=== PATIENT | female | born 1960 | race Caucasian/White ===

== ENCOUNTER 2019-05-08 13:55 | Emergency (ER) | payer MEDICARE, MEDICAID ==
[~2019-05-08] VITALS: Ht 165.1 cm; Wt 104.5 kg
[2019-05-08] MEDS ORDERED: ASPIRIN 81 MG TAB.CHEW PO ONE (14:30)
--- NOTE | 2019-05-08 14:40 | RAD ---
PORTABLE CHEST 1V History: Chest pain Comparison: January 25, 2005 Findings: Single view of the chest is submitted. . AP portable view of the chest is submitted. Pericardial cardiac silhouette appears somewhat larger although could be accentuated by differences in technique. There is no significant dependent pleural fluid, pneumothorax, or lobar consolidation. Impression: 1. Pericardial cardiac silhouette appears larger than 2005 exam although could be accentuated by differences in technique. Electronically signed by: Brandt De La Paz MD (05/08/2019 2:37 PM) [facility] [place]
[2019-05-08 14:52] LABS: BASO % 1 % (0-3); EOS # 0.2 x10^3/uL (0.0-0.7); EOS % 4 % (0-3); HEMATOCRIT 41.3 % (36.0-47.0); HEMOGLOBIN 13.4 g/dL (12.0-15.5); LYMPH # 1.4 x10^3/uL (1.0-4.8); LYMPH % 26 % (24-48); MEAN CORPUSCULAR HEMOGLOBIN 29 pg (25-35); MEAN CORPUSCULAR HGB CONC 33 g/dL (31-37); MEAN CORPUSCULAR VOLUME 89 fL (79-100); MONO # 0.5 x10^3/uL (0.0-1.1); MONO % 10 % (0-9); NEUT # 3.1 x10^3uL (1.8-7.7); NEUT % 59 % (31-73); PLATELET COUNT 178 x10^3/uL (140-400); RED BLOOD COUNT 4.66 x10^6/uL (3.50-5.40); RED CELL DISTRIBUTION WIDTH 15.7 % (11.5-14.5); WHITE BLOOD COUNT 5.3 x10^3/uL (4.0-11.0)
[2019-05-08 14:58] LABS: CALCIUM 8.7 mg/dL (8.5-10.1); CREATININE 1.3 mg/dL (0.6-1.0); GFR 42.1; POTASSIUM 4.1 mmol/L (3.5-5.1)
[2019-05-08 15:10] LABS: ALBUMIN 3.4 g/dL (3.4-5.0); ALBUMIN/GLOBULIN RATIO 1.2 (1.0-1.7); TOTAL BILIRUBIN 0.2 mg/dL (0.2-1.0); TOTAL PROTEIN 6.3 g/dL (6.4-8.2)
--- NOTE | 2019-05-08 15:27 | EKG ---
[address] [address] Test Date: 2019-05-08 Test Time: 14:02:29 Pat Name: ORA CRISTOBAL Department: Room: Gender: F Static Balancer: : 1960 Requested By: JOSE CHAUDHARI Order Number: [id number] Reading MD: Measurements Intervals [place] Rate: 59 P: 40 [place]: 184 QRS: 66 QRSD: 92 T: 69 QT: 392 QTc: 388 Interpretive Statements SINUS RHYTHM NO SPECIFIC ECG ABNORMALITIES RI6.01 No previous ECG available for comparison
--- NOTE | 2019-05-08 15:35 | PHYS DOC ---
Past History Past Medical History: Anxiety, Bipolar, CAD, Diabetes, Other Additional Past Medical Histor: FACTOR 5 Past Surgical History: Cholecystectomy, Knee Replacement Alcohol Use: None Adult General Chief Complaint Chief Complaint: CHEST PAIN HPI HPI 59-year-old female presents with chest pain. The patient was driving when she began to have 10 out of 10 central chest pain that she describes as a sharp sensation. It radiated through to her back. She also had some cramping in the left side of her jaw. This started about an hour prior to arrival. The pain has decreased to a 3 out of 10. She has not taken anything for it. She does have a history of previous MO, but no stents placed. No apparent surgery. Her last stress test was 2 years ago and was reported to be within normal limits. The patient has not been having pain similar to less lately. She denies fever chills. She denies shortness of breath or diaphoresis. She has no other complaints at this time. Review of Systems Review of Systems Constitutional: Denies fever or chills [] Eyes: Denies change in visual acuity, redness, or eye pain [] HENT: Denies nasal congestion or sore throat [] Respiratory: Denies cough or shortness of breath [] Cardiovascular: No additional information not addressed in HPI [] GI: Denies abdominal pain, nausea, vomiting, bloody stools or diarrhea [] : Denies dysuria or hematuria [] Musculoskeletal: Denies back pain or joint pain [] Integument: Denies rash or skin lesions [] Neurologic: Denies headache, focal weakness or sensory changes [] Endocrine: Denies polyuria or polydipsia [] All other systems were reviewed and found to be within normal limits, except as documented in this note. Current Medications Current Medications Current Medications Medications (Trade) Dose Ordered Sig/Lisa Start Time Stop Time Status Last Admin Dose Admin Aspirin (Children'S Aspirin) 324 mg 1X ONCE 05/08/19 14:30 05/08/19 14:31 DC 05/08/19 14:38 324 MG Allergies Allergies Allergies Coded Allergies Type Severity Reaction Last Updated Verified fluoxetine Allergy Unknown 05/08/19 Yes Physical Exam Physical Exam Constitutional: Well developed, well nourished, morbidly obese, no acute distress, non-toxic appearance. [] HENT: Normocephalic, atraumatic, bilateral external ears normal, oropharynx moist, no oral exudates, nose normal. [] Eyes: PERRLA, EOMI, conjunctiva normal, no discharge. [] Neck: Normal range of motion, no tenderness, supple, no stridor. [] Cardiovascular: Heart rate regular rhythm, no murmur [] Lungs & Thorax: Bilateral breath sounds clear to auscultation [] Abdomen: Bowel sounds normal, soft, no tenderness, no masses, no pulsatile masses. [] Skin: Warm, dry, no erythema, no rash. [] Back: No tenderness, no CVA tenderness. [] Extremities: No tenderness, no cyanosis, no clubbing, ROM intact, no edema. [] Neurologic: Alert and oriented X 3, normal motor function, normal sensory function, no focal deficits noted. [] Psychologic: Affect normal, judgement normal, mood normal. [] Current Patient Data Vital Signs Vital Signs Date Time Temp Pulse Resp B/P (MAP) Pulse Ox O2 Delivery O2 Flow Rate FiO2 05/08/19 14:11 97.6 95 18 111/40 (63) 95 Room Air Lab Results Laboratory Tests Test 05/08/19 14:33 White Blood Count 5.3 x10^3/uL (4.0-11.0) Red Blood Count 4.66 x10^6/uL (3.50-5.40) Hemoglobin 13.4 g/dL (12.0-15.5) Hematocrit 41.3 % (36.0-47.0) Mean Corpuscular Volume 89 fL (79-100) Mean Corpuscular Hemoglobin 29 pg (25-35) Mean Corpuscular Hemoglobin Concent 33 g/dL (31-37) Red Cell Distribution Width 15.7 % (11.5-14.5) H Platelet Count 178 x10^3/uL (140-400) Neutrophils (%) (Auto) 59 % (31-73) Lymphocytes (%) (Auto) 26 % (24-48) Monocytes (%) (Auto) 10 % (0-9) H Eosinophils (%) (Auto) 4 % (0-3) H Basophils (%) (Auto) 1 % (0-3) Neutrophils # (Auto) 3.1 x10^3uL (1.8-7.7) Lymphocytes # (Auto) 1.4 x10^3/uL (1.0-4.8) Monocytes # (Auto) 0.5 x10^3/uL (0.0-1.1) Eosinophils # (Auto) 0.2 x10^3/uL (0.0-0.7) Basophils # (Auto) 0.0 x10^3/uL (0.0-0.2) Prothrombin Time 15.8 SEC (9.4-11.4) H Prothrombin Time INR 1.5 (0.9-1.1) H Activated Partial Thromboplast Time 34 SEC (23-33) H Sodium Level 143 mmol/L (136-145) Potassium Level 4.1 mmol/L (3.5-5.1) Chloride Level 108 mmol/L (98-107) H Carbon Dioxide Level 24 mmol/L (21-32) Anion Gap 11 (6-14) Blood Urea Nitrogen 26 mg/dL (7-20) H Creatinine 1.3 mg/dL (0.6-1.0) H Estimated GFR (Cockcroft-Gault) 42.1 BUN/Creatinine Ratio 20 (6-20) Glucose Level 130 mg/dL (70-99) H Calcium Level 8.7 mg/dL (8.5-10.1) Total Bilirubin 0.2 mg/dL (0.2-1.0) Aspartate Amino Transferase (AST) 17 U/L (15-37) Alanine Aminotransferase (ALT) 23 U/L (14-59) Alkaline Phosphatase 55 U/L (46-116) Troponin I Quantitative < 0.017 ng/mL (0-0.055) EC-Ncy-P-Type Natriuretic Peptide 95 pg/mL (0-124) Total Protein 6.3 g/dL (6.4-8.2) L Albumin 3.4 g/dL (3.4-5.0) Albumin/Globulin Ratio 1.2 (1.0-1.7) EKG EKG Sinus rhythm, rate 59, normal axis, no ST elevation or depression. [] Radiology/Procedures Radiology/Procedures [] Course & Med Decision Making Course & Med Decision Making Pertinent Labs and Imaging studies reviewed. (See chart for details) The patient's labs are unremarkable. Her chest x-ray shows possible worsening of cardiomegaly. See official read for details. Her troponin is negative. She is feeling considerably better. I believe she can be discharged. If her sy mptoms return, she will come back to the emergency room. She is stable for discharge at this time. [] Dragon Disclaimer Dragon Disclaimer This electronic medical record was generated, in whole or in part, using a voice recognition dictation system. The HEART Score for CP Pts HEART Score for Chest Pain: HEART Score for Chest Pain Response (Comments) Value History Slighlty/Non-Suspicious 0 ECG Normal 0 Age >45 - < 65 1 Risk Factors >3 Risk Factors or Hx CAD 2 Troponin < Normal Limit 0 Total 3 Risk Factors: Risk Factors: DM, Current or recent (<one month) smoker, HTN, HLP, family history of CAD, obesity. Risk Scores: Score 0 - 3: 2.5% MACE over next 6 weeks - Discharge Home Score 4 - 6: 20.3% MACE over next 6 weeks - Admit for Clinical Observation Score 7 - 10: 72.7% MACE over next 6 weeks - Early Invasive Strategies Departure Departure: Impression: Primary Impression: Chest pain Disposition: 01 HOME, SELF-CARE Condition: STABLE Referrals: SYLVIA LEYVA MD (PCP) Patient Instructions: Chest Pain (Nonspecific), [id number] Problem Qualifiers Primary Impression: Chest pain Chest pain type: unspecified Qualified Codes: R07.9 - Chest pain, unspecified JOSE CHAUDHARI DO May 08, 2019 15:35
[2019-05-08 16:05] VITALS: BP 116/49
== END 2019-05-08 16:05 | disposition home or self-care (01) ==
LOC: ER 13:55
DX: R07.89 Other chest pain (principal); R68.84 Jaw pain; I25.10 Atherosclerotic heart disease of native coronary artery without angina pectoris; E11.9 Type 2 diabetes mellitus without complications; F41.9 Anxiety disorder, unspecified; F31.9 Bipolar disorder, unspecified; Z88.8 Allergy status to other drugs, medicaments and biological substances
CPT/HCPCS: 36415; 71045; 80053; 83880; 84484; 85025; 85610; 85730; 93005; 99285

== ENCOUNTER 2019-07-13 17:54 | Observation (INO) | payer MEDICARE, MEDICAID ==
[~2019-07-13] VITALS: Ht 165.1 cm; Wt 109.8 kg
--- NOTE | 2019-07-13 17:59 | PHYS DOC ---
Past History Past Medical History: Anxiety, Bipolar, CAD, CHF, Depression, Diabetes, DVT, Hypertension, Other Additional Past Medical Histor: FACTOR 5 Past Surgical History: Cholecystectomy, Knee Replacement Smoking: Cigarettes Alcohol Use: None General Adult EDM: Chief Complaint: CHEST WALL PAIN HPI: HPI: " .. I woke up with this central chest discomfort... pain.. about 1 to 1 1/2 ago.. I can't lay down because I get too short of breath... " Patient is a 59 year old female who presents with complaints of chest discomfort and dyspnea. Chest pain awoken her from a sound sleep. Chest pain started approximately hour and a half ago. Pt. stated her chest pain is 10/10, does have some pleuritic components. Patient localizes pain to left sternal border. No history of trauma. No recent change in meds. No history of coughing or fever. Patient has had episodes of chest pain in the past, however has never completed her follow-up with cardiology. Patient does have a history of prior ED evaluations on May 07 May 22. Patient does continue to smoke. Patient has in the past had narcotic dependency, pt. request to attempt to avoid narcotic meds in her treatment. Patient denies any history of immunosuppression. No recent travel. Normally follows with in [facility]. Patient denies any recent fever or chills. Denies and ill contacts. By time of admission chest pain down to 3-4 out of 10. 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 Review of Systems: Review of Systems: Constitutional: Denies fever or chills Eyes: Denies change in visual acuity HENT: Denies nasal congestion or sore throat Respiratory: Denies cough or shortness of breath Cardiovascular: Complains of chest pain and edema GI: Denies abdominal pain, nausea, vomiting, bloody stools or diarrhea : Denies dysuria Musculoskeletal: Denies back pain or joint pain Integument: Denies rash Neurologic: Denies headache, focal weakness or sensory changes Endocrine: Denies polyuria or polydipsia Lymphatic: Denies swollen glands Psychiatric: Denies depression or anxiety Heart Score: HEART Score for Chest Pain: HEART Score for Chest Pain Response (Comments) Value History Slighlty/Non-Suspicious 0 ECG Nonspecific Repolarizatio 1 Age >45 - < 65 1 Risk Factors 1 or 2 Risk Factors 1 Troponin < Normal Limit 0 Total 3 Risk Factors: Risk Factors: DM, Current or recent (<one month) smoker, HTN, HLP, family hist ory of CAD, obesity. Risk Scores: Score 0 - 3: 2.5% MACE over next 6 weeks - Discharge Home Score 4 - 6: 20.3% MACE over next 6 weeks - Admit for Clinical Observation Score 7 - 10: 72.7% MACE over next 6 weeks - Early Invasive Strategies Family History: Family History: Mother age 78, healthy- still works, Father of DVT/PE 82. Brother x 3 - all healthy. Current Medications: Current Meds: See nursing for home meds Allergies: Allergies: Allergies Coded Allergies Type Severity Reaction Last Updated Verified fluoxetine Allergy Unknown 05/08/19 Yes Physical Exam: PE: Constitutional: Moderate acute distress, non-toxic appearance. [] HENT: Normocephalic, atraumatic, bilateral external ears normal, oropharynx moist, no oral exudates, nose normal. [] Eyes: PERRLA, EOMI, conjunctiva normal, no discharge. [] Neck: Normal range of motion, no tenderness, supple, no stridor. [] Cardiovascular: Bradycardia heart rate regular rhythm, no murmur [] Lungs & Thorax: Bilateral breath sounds equal apex with scattered wheezes on auscultation [] Abdomen: Bowel sounds normal, soft, no tenderness, no masses, no pulsatile masses. Old surgery scars Skin: Warm, dry, no erythema, no rash. [] Back: No tenderness, no CVA tenderness. [] Extremities: No tenderness, no cyanosis, no clubbing, ROM intact, bilateral lower leg pitting edema. [] Neurologic: Alert and oriented X 3, normal motor function, normal sensory function, no focal deficits noted. [] Psychologic: Affect anxious l, judgement normal, mood normal. [] EKG: EKG: Monitor briefly.. Throat is a sinus bradycardia at 58 bpm. No findings of acute STEMI with contralateral changes. [] Radiology/Procedures: Radiology/Procedures: [address] [address] IMAGING REPORT Signed PATIENT: LUCÍA HERNANDEZCCOUNT: [id number] : 1960 LOCATION: ER AGE: 59 SEX: F EXAM STATUS: REG ER ORD. PHYSICIAN: DAVE LAMA MD REASON: cp, dyspnea PROCEDURE: CHEST PA & LATERAL Exam: Chest 2 views INDICATION: Chest pain TECHNIQUE: Frontal view of the chest Comparisons: 05/26/2019 FINDINGS: The cardiomediastinal silhouette and pulmonary vessels are within normal limits. Patchy airspace disease at the lung bases. No pleural effusion. IMPRESSION: Patchy airspace disease at the lung bases bilaterally, may represent developing infectious process. Electronically signed by: Barney Crum MD (07/13/2019 6:46 PM) [id number] DICTATED AND SIGNED BY: BARNEY CRUM MD DATE: 07/13/191845 CC: DAVE LAMA MD; TY GARDNER PAC ~ Course & Med Decision Making: Course & Med Decision Making Pertinent Labs and Imaging studies reviewed. (See chart for details) PT. Admit to Dr. Head with Cardiology consult. Pt. Observation status, US leg and Limit Echo. One dose of Lovenox- since INR Sub. Therapeutic. Impression: 1. Chest Pain 2. UTI 3. Elev. Creat. 1.2 4. DM 126 5. Tob. Use 6. Sub. Therapeutic INR 1.8 7. Hx Past Narcotic Abuse 8. Hx.Factor V def. ( past hx DVT) [] Dragon Disclaimer: Dragon Disclaimer: This electronic medical record was generated, in whole or in part, using a voice recognition dictation system. Departure Departure: Disposition: HOME/RESIDENCE PRIOR TO ADM Condition: STABLE Referrals: TY GARDNER PAC (PCP) Justification of Admission: Justification of Admission: Justification of Admission Dx: Yes Angina: New-Onset Dragon Disclaimer This chart was dictated in whole or in part using Voice Recognition software in a busy, high-work load, and often noisy Emergency Department environment. It may contain unintended and wholly unrecognized errors or omissions. Dragon Disclaimer This chart was dictated in whole or in part using Voice Recognition software in a busy, high-work load, and often noisy Emergency Department environment. It may contain unintended and wholly unrecognized errors or omissions. DAVE LAMA MD Jul 13, 2019 17:59
[2019-07-13] MEDS ORDERED: IV RINGERS SOLUTION,LACTATED 1,000 ML IV SCH (18:00)
[2019-07-13 18:21] LABS: BASO # 0.1 x10^3/uL (0.0-0.2); BASO % 2 % (0-3); EOS # 0.2 x10^3/uL (0.0-0.7); EOS % 4 % (0-3); HEMATOCRIT 40.3 % (36.0-47.0); HEMOGLOBIN 13.3 g/dL (12.0-15.5); LYMPH # 1.6 x10^3/uL (1.0-4.8); LYMPH % 32 % (24-48); MEAN CORPUSCULAR HEMOGLOBIN 29 pg (25-35); MEAN CORPUSCULAR HGB CONC 33 g/dL (31-37); MEAN CORPUSCULAR VOLUME 88 fL (79-100); MONO # 0.6 x10^3/uL (0.0-1.1); MONO % 12 % (0-9); NEUT # 2.4 x10^3uL (1.8-7.7); NEUT % 50 % (31-73); PLATELET COUNT 174 x10^3/uL (140-400); RED BLOOD COUNT 4.61 x10^6/uL (3.50-5.40); RED CELL DISTRIBUTION WIDTH 15.8 % (11.5-14.5); WHITE BLOOD COUNT 4.8 x10^3/uL (4.0-11.0)
[2019-07-13 18:31] LABS: BILIRUBIN,URINE NEG (NEG); CLARITY,URINE CLOUDY; COLOR,URINE YELLOW; GLUCOSE,URINE NEG (NEG); NITRITE,URINE POS (NEG); UROBILINOGEN,URINE 0.2 mg/dL (0.2 mg/dL)
[2019-07-13 18:32] LABS: CREATININE 1.2 mg/dL (0.6-1.0); GFR 46.1; POTASSIUM 3.6 mmol/L (3.5-5.1)
[2019-07-13 18:38] LABS: BARBITURATES NEG (NEG); BENZODIAZEPINES NEG (NEG); CANNABINOIDS NEG (NEG); COCAINE NEG (NEG); METHADONE POS (NEG); OPIATES NEG (NEG); PHENCYCLIDINE NEG (NEG)
[2019-07-13 18:39] LABS: AMPHETAMINE/METHAMPHETAMINE NEG (NEG)
[2019-07-13 18:43] LABS: BACTERIA,URINE MANY /HPF (0-FEW); SQUAMOUS EPITHELIAL CELL,UR MOD /LPF; WBC,URINE >40 /HPF (0-4)
[2019-07-13 18:44] LABS: ALBUMIN 3.2 g/dL (3.4-5.0); DIRECT BILIRUBIN 0.1 mg/dL (0.0-0.2); MAGNESIUM 1.9 mg/dL (1.8-2.4); TOTAL BILIRUBIN 0.3 mg/dL (0.2-1.0); TOTAL PROTEIN 6.3 g/dL (6.4-8.2)
--- NOTE | 2019-07-13 18:48 | RAD ---
Exam: Chest 2 views INDICATION: Chest pain TECHNIQUE: Frontal view of the chest Comparisons: 05/26/2019 FINDINGS: The cardiomediastinal silhouette and pulmonary vessels are within normal limits. Patchy airspace disease at the lung bases. No pleural effusion. IMPRESSION: Patchy airspace disease at the lung bases bilaterally, may represent developing infectious process. Electronically signed by: Barney Shea MD (07/13/2019 6:46 PM) [id number]
[2019-07-13] MEDS ORDERED: ACETAMINOPHEN 325 MG TABLET PO PRN (19:15)
[2019-07-13] MEDS ORDERED: ONDANSETRON PF 4 MG/2 ML VIAL. IVP PRN (19:15)
[2019-07-13] MEDS ORDERED: levoFLOXacin 500 MG TABLET PO ONE (19:15)
[2019-07-13] MEDS ORDERED: ENOXAPARIN ** NOTE DOSE ** SYRINGE SQ ONE (20:00)
[2019-07-13] MEDS ORDERED: KETOROLAC 15 MG/ML VIAL. IVP ONE (20:00)
[2019-07-13] MEDS: IPRATRPIUM/ALBUTEROL 0.5/2.5MG 3 ML NEBU. NEB SCH (20:00)
[2019-07-13 21:54] VITALS: BP 104/61
--- NOTE | 2019-07-13 22:00 | NUR ---
The patient, ORA HERNANDEZ, 59 y/o, F admitted by REJI LESTER MD, was given written information regarding hospital policies, unit procedures and contact persons. Pt arrived to room 115 via gurney, accompanied by [facility] and [facility] EMT-P. A/Ox4, ambulatory. Pt here for c/o sharp medial chest pain through to her back that woke her from a nap this evening. Pt significant for Factor V Leiden and is on Coumadin therapy-6mg PO daily with INR checks Q Sunday. Pt also reports recent OH last year, follows with [facility] cardiology on an outpatient basis. PMH and partial home meds reviewed. Pt brought med dose packs from home but is unable to recall some meds she has in separate bottles. Will need to contact her preferred pharmacy, [facility] in [place]. Pt oriented to room and discussed POC, V/U. Pt currently sitting up in bed, watching TV and eating a boxed lunch. Call light in reach. Will consult cardiology in AM. Valuables were checked and logged. Purse and cell left at bedside. Home med dose packs locked in med room.
[2019-07-14] MEDS ORDERED: BUPR300T92 PO (00:25)
[2019-07-14] MEDS ORDERED: PREG150C PO (00:25)
[2019-07-14] MEDS ORDERED: CARV12.547 PO (00:25)
[2019-07-14] MEDS ORDERED: MEMA10TA PO (00:25)
[2019-07-14] MEDS ORDERED: FESO8TAB PO (00:25)
[2019-07-14] MEDS ORDERED: PANT40TA5 PO (00:25)
[2019-07-14] MEDS ORDERED: METF-658 PO (00:25)
[2019-07-14] MEDS ORDERED: LISI-338 PO (00:25)
[2019-07-14] MEDS ORDERED: WARF6TAB PO (00:25)
[2019-07-14] MEDS ORDERED: FENO145T3 PO (00:25)
[2019-07-14] MEDS ORDERED: ARIP10TA9 PO (00:25)
[2019-07-14] MEDS ORDERED: PRAV20TA2 PO (00:25)
[2019-07-14] MEDS ORDERED: ISOS120T4 PO (00:25)
[2019-07-14] MEDS: IPRATRPIUM/ALBUTEROL 0.5/2.5MG 3 ML NEBU. NEB SCH (05:22)
--- NOTE | 2019-07-14 06:00 | NUR ---
While sleeping, PT's HR dipped to 44. Her average HR is 49-50 while awake. On supervised visit to bathroom, PT was dizzy for a few moments when sitting from lying. PT's HOB elevated. PT receiving IVF. Will continue to monitor.
--- NOTE | 2019-07-14 06:31 | NUR ---
On reassessment, PT's HR reached 42 while asleep. Checked on PT, woke her up, she said she was fine.
[2019-07-14 06:37] LABS: BASO % 1 % (0-3); EOS # 0.2 x10^3/uL (0.0-0.7); EOS % 4 % (0-3); HEMATOCRIT 40.3 % (36.0-47.0); HEMOGLOBIN 13.1 g/dL (12.0-15.5); LYMPH # 1.3 x10^3/uL (1.0-4.8); LYMPH % 36 % (24-48); MEAN CORPUSCULAR HEMOGLOBIN 29 pg (25-35); MEAN CORPUSCULAR HGB CONC 32 g/dL (31-37); MEAN CORPUSCULAR VOLUME 89 fL (79-100); MONO # 0.5 x10^3/uL (0.0-1.1); MONO % 13 % (0-9); NEUT # 1.7 x10^3uL (1.8-7.7); NEUT % 47 % (31-73); PLATELET COUNT 147 x10^3/uL (140-400); RED BLOOD COUNT 4.55 x10^6/uL (3.50-5.40); RED CELL DISTRIBUTION WIDTH 15.5 % (11.5-14.5); WHITE BLOOD COUNT 3.7 x10^3/uL (4.0-11.0)
[2019-07-14] MEDS ORDERED: ALBUTEROL SULFATE 2.5 MG/3 ML NEBU. NEB PRN (06:45)
[2019-07-14 06:46] LABS: CALCIUM 8.1 mg/dL (8.5-10.1); CREATININE 1.4 mg/dL (0.6-1.0); GFR 38.6; POTASSIUM 3.9 mmol/L (3.5-5.1)
--- NOTE | 2019-07-14 07:20 | EKG ---
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
[2019-07-14 07:50] VITALS: BP 135/79
--- NOTE | 2019-07-14 08:00 | PDOC2 ---
ENRIQUE GIPSON DEEPALI 07/14/19 0800: CARDIAC CONSULT DATE OF CONSULT Date Of Consult DATE: 07/14/19 TIME: 07:58 REASON FOR CONSULT Reason for Consult Chest pain REFERRING PHYSICIAN Referring Physician Dr. Javier SOURCE Source: Chart review, Patient HPI History of Present Illness This is a 59 yo female who presented secondary to chest pain. Patient reports waking up from sleep yesterday afternoon with stabbing pain in her left chest. Radiated through to her back. Associated with mild nausea. No significant shortness of breath, palpitations, dizziness, or diaphoresis. Pain seemed to come and go. Was worse with deep breathing. Patient reports having cath in 2015 with non-obstructive disease. Moved here in October and established care wt Dr. Sen in [place]. PAST MEDICAL HISTORY Cardiovascular: CAD, CHF, HTN, hyperipidemia GI: GERD Heme/Onc: Other (DVT, Factor V def) Psych: Anxiety, Bipolar, Depression Renal/: Chronic renal insuff Endocrine: Diabetes PAST SURGICAL HISTORY Past Surgical History: Cholecystectomy, Total knee replacement (bilateral ) FAMILY HISTORY Family History: Heart Disease SOCIAL HISTORY Smoke: 1 pack per day ALCOHOL: none Drugs: None Lives: with Family CURRENT MEDICATIONS Current Medications Current Medications Lactated Ringer's 1,000 ml @ 75 mls/hr [id number] IV Last administered on 07/13/19at 18:40; Start 07/13/19 at 18:00; Stop 07/14/19 at 07:19; Status DC Levofloxacin (Levaquin) 500 mg 1X ONCE PO Last administered on 07/13/19at 19:11; Start 07/13/19 at 19:15; Stop 07/13/19 at 19:16; Status DC Ondansetron HCl (Zofran) 4 mg PRN Q4HRS PRN IVP NAUSEA/VOMITING; Start 07/13/19 at 19:15; Stop 07/14/19 at 19:14 Acetaminophen (Tylenol) 650 mg PRN Q4HRS PRN PO FEVER > 100.3'F; Start 07/13/19 at 19:15; Stop 07/14/19 at 19:14 Albuterol/ Ipratropium (Duoneb) 3 ml RTQID NEB Last administered on 07/14/19at 05:22; Start 07/13/19 at 20:00; Stop 07/14/19 at 06:24; Status DC Levofloxacin (Levaquin) 500 mg DAILY PO Last administered on 07/14/19at 07:47; Start 07/14/19 at 09:00 Enoxaparin Sodium (Lovenox 100mg Syringe) 100 mg 1X ONCE SQ Last administered on 07/13/19at 21:57; Start 07/13/19 at 20:00; Stop 07/13/19 at 20:01; Status DC Ketorolac Tromethamine (Toradol 15mg Vial) 15 mg 1X ONCE IVP Last administered on 07/13/19at 21:58; Start 07/13/19 at 20:00; Stop 07/13/19 at 20:01; Status DC Albuterol Sulfate (Ventolin) 2.5 mg PRN QID PRN NEB SHORTNESS OF BREATH; Start 07/14/19 at 06:45 Active Scripts Active Reported Namenda (Memantine Hcl) 10 Mg Tablet 10 Mg PO DAILY Lyrica (Pregabalin) 150 Mg Capsule 150 Mg PO TID Coumadin (Warfarin Sodium) 6 Mg Tablet 6 Mg PO DAILY Isosorbide Mononitrate Er (Isosorbide Mononitrate) 120 Mg Tab.er.24h 120 Mg PO DAILY Lisinopril 5 Mg Tablet 5 Mg PO BID Metformin Hcl Er (Metformin Hcl) 500 Mg Tab.er.24h 1,000 Mg PO DAILYWBKFT Pantoprazole Sodium 40 Mg Tablet.dr 40 Mg PO DAILYAC Carvedilol (Carvedilol) 12.5 Mg Tablet 12.5 Mg PO BIDWMEALS Fenofibrate (Fenofibrate Nanocrystallized) 145 Mg Tablet 145 Mg PO DAILY Bupropion Xl (Bupropion Hcl) 300 Mg Tab.er.24h 300 Mg PO DAILY Toviaz (Fesoterodine Fumarate) 8 Mg Tab.er.24h 8 Mg PO DAILY Abilify (Aripiprazole) 10 Mg Tablet 3 Tab PO DAILY Pravastatin Sodium 20 Mg Tablet 20 Mg PO HS ALLERGIES Allergies: Coded Allergies: fluoxetine (Verified Allergy, Intermediate, 07/13/19) MAKES HER SI ROS Review of Systems 14 point ROS conducted with pertinent positives noted above in HPI PHYSICAL EXAM General: Alert, Oriented X3, Cooperative, No acute distress HEENT: Atraumatic, Mucous membr. moist/pink Lungs: Other (diminished bases) Heart: Regular rate Abdomen: Soft, No hepatospenomegaly Extremities: No edema, Normal pulses Skin: No breakdown Neuro: Normal speech, Strength at 5/5 X4 ext, Sensation intact Psych/Mental Status: Mental status NL, Mood NL MUSCULOSKELETAL: Osteoarthritic changes both hands VITALS Vital Signs Vital Signs Date Time Temp Pulse Resp B/P (MAP) Pulse Ox O2 Delivery O2 Flow Rate FiO2 07/14/19 07:50 97.7 51 18 135/79 (97) 95 Room Air LABS LABS Laboratory Tests Test 07/13/19 18:06 07/13/19 18:15 07/14/19 06:07 White Blood Count 4.8 x10^3/uL (4.0-11.0) 3.7 x10^3/uL (4.0-11.0) Red Blood Count 4.61 x10^6/uL (3.50-5.40) 4.55 x10^6/uL (3.50-5.40) Hemoglobin 13.3 g/dL (12.0-15.5) 13.1 g/dL (12.0-15.5) Hematocrit 40.3 % (36.0-47.0) 40.3 % (36.0-47.0) Mean Corpuscular Volume 88 fL (79-100) 89 fL (79-100) Mean Corpuscular Hemoglobin 29 pg (25-35) 29 pg (25-35) Mean Corpuscular Hemoglobin Concent 33 g/dL (31-37) 32 g/dL (31-37) Red Cell Distribution Width 15.8 % (11.5-14.5) 15.5 % (11.5-14.5) Platelet Count 174 x10^3/uL (140-400) 147 x10^3/uL (140-400) Neutrophils (%) (Auto) 50 % (31-73) 47 % (31-73) Lymphocytes (%) (Auto) 32 % (24-48) 36 % (24-48) Monocytes (%) (Auto) 12 % (0-9) 13 % (0-9) Eosinophils (%) (Auto) 4 % (0-3) 4 % (0-3) Basophils (%) (Auto) 2 % (0-3) 1 % (0-3) Neutrophils # (Auto) 2.4 x10^3uL (1.8-7.7) 1.7 x10^3uL (1.8-7.7) Lymphocytes # (Auto) 1.6 x10^3/uL (1.0-4.8) 1.3 x10^3/uL (1.0-4.8) Monocytes # (Auto) 0.6 x10^3/uL (0.0-1.1) 0.5 x10^3/uL (0.0-1.1) Eosinophils # (Auto) 0.2 x10^3/uL (0.0-0.7) 0.2 x10^3/uL (0.0-0.7) Basophils # (Auto) 0.1 x10^3/uL (0.0-0.2) 0.0 x10^3/uL (0.0-0.2) Prothrombin Time 18.4 SEC (9.4-11.4) Prothromb Time International Ratio 1.8 (0.9-1.1) Activated Partial Thromboplast Time 37 SEC (23-33) D-Dimer (Ayaka) 0.25 mg/L (0.00-0.50) Sodium Level 143 mmol/L (136-145) 142 mmol/L (136-145) Potassium Level 3.6 mmol/L (3.5-5.1) 3.9 mmol/L (3.5-5.1) Chloride Level 110 mmol/L (98-107) 108 mmol/L (98-107) Carbon Dioxide Level 26 mmol/L (21-32) 28 mmol/L (21-32) Anion Gap 7 (6-14) 6 (6-14) Blood Urea Nitrogen 20 mg/dL (7-20) 27 mg/dL (7-20) Creatinine 1.2 mg/dL (0.6-1.0) 1.4 mg/dL (0.6-1.0) Estimated GFR (Cockcroft-Gault) 46.1 38.6 Glucose Level 126 mg/dL (70-99) 115 mg/dL (70-99) Calcium Level 8.0 mg/dL (8.5-10.1) 8.1 mg/dL (8.5-10.1) Magnesium Level 1.9 mg/dL (1.8-2.4) Total Bilirubin 0.3 mg/dL (0.2-1.0) Direct Bilirubin 0.1 mg/dL (0.0-0.2) Aspartate Amino Transf (AST/SGOT) 15 U/L (15-37) Alanine Aminotransferase (ALT/SGPT) 23 U/L (14-59) Alkaline Phosphatase 54 U/L (46-116) Creatine Kinase 75 U/L (26-192) Troponin I Quantitative < 0.017 ng/mL (0-0.055) AM-Dyh-L-Type Natriuretic Peptide 183 pg/mL (0-124) Total Protein 6.3 g/dL (6.4-8.2) Albumin 3.2 g/dL (3.4-5.0) Lipase 89 U/L (73-393) Urine Collection Type Unknown Urine Color Yellow Urine Clarity Cloudy Urine pH 6.0 Urine Specific [place] 1.015 Urine Protein Neg (NEG-TRACE) Urine Glucose (UA) Neg mg/dL (NEG) Urine Ketones (Stick) Neg mg/dL (NEG) Urine Blood Trace (NEG) Urine Nitrite Pos (NEG) Urine Bilirubin Neg (NEG) Urine Urobilinogen Dipstick 0.2 mg/dL (0.2 mg/dL) Urine Leukocyte Esterase Small (NEG) Urine RBC 1-2 /HPF (0-2) Urine WBC >40 /HPF (0-4) Urine Squamous Epithelial Cells Mod /LPF Urine Bacteria Many /HPF (0-FEW) Urine Opiates Screen Neg (NEG) Urine Methadone Screen Pos (NEG) Urine Barbiturates Neg (NEG) Urine Phencyclidine Screen Neg (NEG) Urine Amphetamine/Methamphetamine Neg (NEG) Urine Benzodiazepines Screen Neg (NEG) Urine Cocaine Screen Neg (NEG) Urine Cannabinoids Screen Neg (NEG) Urine Ethyl Alcohol Neg (NEG) ASSESSMENT/PLAN Assessment/Plan 1. Chest pain, atypical. Initial trop negative 2. CAD; reported non-obstructive per cath 2015. Previously followed with [facility] in [place]. Moved to [place] 10/2018 and has not established cardiology care. 3. Chronic probable diastolic CHF 4. Hypertension 5. Hyperlipidemia 6. Diabetes, II 7. CKD 8. Factor V Leiden deficiency with h/o DVT. Chronic anticoagulation therapy with warfarin/ INR 1.8 9. Depression, anxiety, bipolar 10. Chronic pain; methadone 11. Tobaccoism; discussed/encouraged cessation 12. UTI Recommendations Trend troponin Lipids, TSH ASA, statin therapy Echo to assess LV systolic function Given risk factors, will scheduled outpatient stress test and cardiology follow up DONALD PITT MD 07/15/19 1752: CARDIAC CONSULT ASSESSMENT/PLAN Assessment/Plan Patient seen and examined on 07/14/19. Atypical chest pain. Initial troponins normal. No acute EKG changes. Continue present medications. Outpatient follow-up and testing as above. Diastolic heart failure. Continue present treatment. Echocardiogram. Outpatient follow-up. Hypertension. Under better control. Hyperlipidemia. Continue present medications. Factor V Leyden deficiency. On anticoagulation Thank you for allowing us to participate in the care of your patient. ENRIQUE GIPSON APRN Jul 14, 2019 08:00 DONALD PITT MD Jul 15, 2019 17:52
[2019-07-14] MEDS ORDERED: METH10TA2 PO (08:12)
[2019-07-14] MEDS ORDERED: OXYC1TAB19 PO (08:12)
[2019-07-14] MEDS ORDERED: oxyCODONE/APAP 7.5/325 1 TAB TABLET PO PRN (08:30)
[2019-07-14] MEDS ORDERED: levoFLOXacin 500 MG TABLET PO SCH (09:00)
--- NOTE | 2019-07-14 09:04 | RAD ---
Examination: Bilateral venous Doppler Indication: Leg swelling Technique: Ultrasound evaluation of the bilateral lower extremities was performed from the groin to the upper calf with dover scale, spectral and color doppler evaluation. Comparison: None Findings: There is normal venous flow and compressibility of bilateral common femoral veins, femoral veins, popliteal veins, and visualized proximal calf veins. Impression: No evidence for deep vein thrombosis of bilateral lower extremities from the level of the calf veins to the groins. Electronically signed by: Arsenio Tarango MD (07/14/2019 9:01 AM) [id number]
[2019-07-14] MEDS ORDERED: SPIR25TA5 PO (09:20)
[2019-07-14] MEDS ORDERED: buPROPion XL 300 MG TAB.ER.24H. PO SCH (09:30)
[2019-07-14] MEDS ORDERED: WARFARIN 6 MG TABLET. PO SCH (09:30)
[2019-07-14] MEDS ORDERED: FENOFIBRATE NANOCRYSTALLIZED 145 MG TABLET PO SCH (09:30)
[2019-07-14] MEDS ORDERED: MEMANTINE 10 MG TABLET. PO SCH (09:30)
[2019-07-14] MEDS ORDERED: LISINOPRIL 5 MG TABLET. PO SCH (09:30)
[2019-07-14] MEDS ORDERED: ARIPiprazole 10 MG TABLET PO SCH (09:30)
[2019-07-14] MEDS ORDERED: OXYBUTYNIN CHLORIDE 5 MG TABLET PO SCH (09:30)
[2019-07-14] MEDS ORDERED: PREGABALIN 75 MG CAPSULE PO SCH (09:45)
[2019-07-14] MEDS ORDERED: METHADONE 5 MG TABLET. PO PRN (09:45)
[2019-07-14 11:58] VITALS: BP 158/77
[2019-07-14] MEDS ORDERED: CARV6.25 PO (12:47)
[2019-07-14] MEDS ORDERED: LEVO500T59 PO (12:47)
--- NOTE | 2019-07-14 13:21 | NUR ---
NURSING NOTE DISCHARGE PT DISCHARGED HOME VIA AMBULATION ACCOMPANIED BY SELF, PICKED UP BY . PT GIVEN WRITTEN SCRIPT FOR LEVAQUIN FOR UTI X5 DAYS. WRITTEN AND VERBAL DISCHARGE INSTRUCTIONS GIVEN TO PT. NO COMPLICATIONS. SUMAN PELAEZ.
--- NOTE | 2019-07-14 13:39 | DS ---
DATE OF DISCHARGE: 07/14/2019 HOSPITAL COURSE: The patient is a 59-year-old female patient who came with chest pain that awakened her from sleep. She did complain of shortness of breath, but denied any nausea or vomiting. Denied any diaphoresis. She was extensively investigated. Her EKG showed that she has sinus bradycardia. She has 2 sets of cardiac enzymes that ruled out myocardial infarction. She was seen by the Cardiology team and they recommended that the patient can be discharged home with arrangement for her to have an echocardiogram and a stress test as an outpatient. PHYSICAL EXAMINATION: GENERAL: When I saw her this afternoon, she was sitting on the edge of the bed, eating her lunch comfortably, in no apparent distress. There was no pallor, jaundice, cyanosis or thyromegaly. No jugular venous distension. No limb edema. VITAL SIGNS: Her heart rate was 48, blood pressure was 158/77, temperature 97.4, respiratory rate 20, and oxygen saturation was 95%. The rest of clinic exam is stable. LABORATORY DATA: This morning showed a serum sodium 142, potassium 3.9, chloride 108, bicarbonate 28, anion gap of 6, BUN 27, creatinine 1.4, estimated GFR was 38 mL per minute. Her glucose 115, calcium was 8.1, hemoglobin 13, hematocrit 40 with normal white cell count and platelets. Her urinalysis showed that it was positive for nitrite and leukocyte esterase. She had 2 sets of cardiac enzymes that were negative. Her urine was sent for culture and sensitivity; however, the results were still pending at the time of this dictation. DISCHARGE MEDICATIONS: She was discharged home to continue on carvedilol 6.25 mg twice a day, levofloxacin 500 mg once a day for 5 days, aripiprazole 10 mg, she takes 3 tablets daily, Wellbutrin 300 mg daily, fenofibrate nanocrystallized 145 mg daily, fesoterodine fumarate or Toviaz 8 mg daily, isosorbide mononitrate 120 mg once a day, lisinopril 5 mg twice a day, Namenda 10 mg daily, metformin 1000 mg daily with breakfast, methadone 10 mg twice a day, oxycodone/APAP 7.5/325 one tablet 3 times a day, Protonix 40 mg once a day, pravastatin 20 mg at bedtime, pregabalin for Lyrica 150 mg 3 times a day, spironolactone 25 mg daily, warfarin 6 mg daily. FINAL DISCHARGE DIAGNOSES: 1. Atypical chest pain, acute myocardial infarction ruled out. The patient is known to have coronary artery disease with reported nonobstructive per catheterization done in 2016. 2. Chronic diastolic congestive heart failure, hypertension, hyperlipidemia, type 2 diabetes mellitus, chronic kidney disease, factor V Leiden deficiency with history of DVT, chronic anticoagulation therapy. 3. Depression, anxiety, chronic pain syndrome for which she is on methadone, tobaccoism and urinary tract infection. REJI LESTER MD DR: PEEWEE/terry JOB#: [id number] / [id number]
--- NOTE | 2019-07-14 13:43 | HP ---
ADMIT DATE: 07/13/2019 HISTORY OF PRESENT ILLNESS: The patient is a 59-year-old female patient who was admitted with a complaint of chest wall pain. She said that she woke up with the central chest discomfort started about an hour to an hour and half ago before she arrived to the Emergency Room. She said she cannot lay down because she got too short of breath. Pain has awakened her from a sound sleep. She rate the pain at about 10/10, does have some pleuritic component. The patient localized the pain to the left sternal border. No history of trauma. No recent change in medication. No history of coughing or fever. She has had an episode of chest pain in the past; however, has never completed her follow up with Cardiology. She unfortunately continues to smoke as she had in the past and has had narcotic dependency and she requested to attempt to avoid any narcotic medication in her treatment. Her primary care physician is Dr. Sen at [place], [place]. By the time she arrived to the Emergency Room, her pain was 3 to 4/10 and she is already on Coumadin for prior DVT and factor V deficiency. She was evaluated in the Emergency Room and has had an EKG, which showed that she was in sinus bradycardia with heart rate of 58 beats per minute, no acute ST segment elevation IN. She has patchy airspace disease at the lung bases bilaterally, may represent developing infectious process. Her lab work showed that her white cell count was normal. Her D-dimer was normal. Her chemistry was also unrevealing and her first set of troponin was less than 0.017, and therefore, the patient was admitted to do 2 more sets of cardiac enzyme, consult the Cardiology team. PAST MEDICAL HISTORY: Significant for coronary artery disease, congestive heart failure, hypertension, hyperlipidemia, gastroesophageal reflux disease. She is known to have a history of DVT and factor V Leiden, anxiety, depression, bipolar disorder, has chronic kidney disease and type 2 diabetes mellitus. PAST SURGICAL HISTORY: Significant for bilateral total knee arthroplasty and cholecystectomy. FAMILY HISTORY: Positive for heart disease. SOCIAL HISTORY: She lives with her . She smokes a pack a day, does not drink alcohol or use any recreational drugs. ALLERGIES: SHE IS ALLERGIC TO FLUOXETINE. MEDICATIONS: She is on warfarin 6 mg once a day, fenofibrate nanocrystallized 145 mg daily, pravastatin sodium 20 mg at bedtime. She is on isosorbide mononitrate 120 mg daily, carvedilol 12.5 mg twice a day, lisinopril 5 mg twice a day, spironolactone 25 mg once a day, methadone 10 mg twice a day, oxycodone/APAP 7.5/325 one tablet 3 times a day as needed, pregabalin 150 mg 3 times a day, Wellbutrin 300 mg extended release once a day, Protonix 40 mg daily, metformin 1000 mg with breakfast, and Toviaz 8 mg p.o. daily. REVIEW OF SYSTEMS: As per history of present illness. PHYSICAL EXAMINATION: GENERAL: On arrival to the Emergency Room, the patient looked well and was clearly in no apparent respiratory distress. No pallor, jaundice, cyanosis or thyromegaly. No jugular venous distention. No limb edema. VITAL SIGNS: Her heart rate was 58, blood pressure was 107/53, temperature was 98.1, respiratory rate was 20, and oxygen saturation was 95%. HEAD, EYES, EARS, NOSE AND THROAT: Showed normocephalic, atraumatic. NECK: Supple. HEART: Showed normal first and second heart sounds. No gallop or murmur. CHEST: Clear to auscultation. No crepitation or rhonchi. ABDOMEN: Distended, soft, nontender. NEUROLOGIC: She was awake, alert, responding appropriately and grossly intact. LABORATORY DATA: On admission showed a white cell count 4800, hemoglobin 13, hematocrit 40, MCV 88 and platelet count of 174,000. Her prothrombin time was 18.4, INR 1.8, APTT was 37 and D-dimer was 0.25 mg/dL. Her chemistry showed serum sodium 143, potassium 3.6, chloride 110, bicarbonate 26, anion gap of 7, BUN 20, creatinine 1.2, estimated GFR was 48 to 60 mL per minute, her glucose 126, calcium 8, magnesium 1.9. Total bilirubin, AST, ALT, alkaline phosphatase were normal. CK was 75. Beta natriuretic peptide was 183. First set of cardiac enzymes showed troponin to be less than 0.017. Total protein 6.3, albumin 3.2. Lipase was 89. Urinalysis showed the urine was yellow, cloudy with a pH of 6, specific gravity of 1.015. The urine was negative for glucose, ketones or trace of blood, positive for nitrite, small amount of leukocyte esterase, 1-2 rbc's, more than 40 wbc's, and too many bacteria. Her toxic screen was positive for methadone, negative for all other drugs. Her chest x-ray showed cardiomediastinal silhouette and pulmonary vessels are within normal limits. She has patchy airspace disease at the lung bases with no pleural effusion. She has had venous Doppler ultrasound of both lower extremities showed there is no evidence of deep vein thrombosis, bilateral lower extremities from the level of the calf veins to the groin. The patient was admitted. We will do 2 more sets of cardiac enzymes. We will consult the Cardiology team and decide the further management accordingly. REJI LESTER MD DR: PEEWEE/terry JOB#: [id number] / [id number]
[2019-07-14 14:18] LABS: THYROID STIM HORMONE (TSH) 0.763 uIU/mL (0.358-3.740)
[2019-07-14] MEDS ORDERED: CARVEDILOL 12.5 MG TABLET PO SCH ×2 (17:00)
[2019-07-14] MEDS ORDERED: ATORVASTATIN CALCIUM 10 MG TABLET. PO SCH (21:00)
[2019-07-15] MEDS ORDERED: PANTOPRAZOLE 40 MG TABLET. PO SCH (07:30)
[2019-07-15] MEDS ORDERED: ASPIRIN ENTERIC COATED 81 MG TABLET.DR. PO SCH (08:00)
[2019-07-15] MEDS ORDERED: ISOSORBIDE MONONITRATE ER 30 MG TAB.ER.24H PO SCH (09:30)
== END 2019-07-14 13:22 | disposition home or self-care (01) ==
LOC: ER 17:54 → 1 SOUTH 20:20
PROVIDERS: ADMIT Internal Medicine; ATTEND Internal Medicine
DX: R07.89 Other chest pain (principal); I13.0 Hypertensive heart and chronic kidney disease with heart failure and stage 1 through stage 4 chronic kidney disease, or unspecified chronic kidney disease; N18.9 Chronic kidney disease, unspecified; F31.9 Bipolar disorder, unspecified; N39.0 Urinary tract infection, site not specified; I50.32 Chronic diastolic (congestive) heart failure; I25.10 Atherosclerotic heart disease of native coronary artery without angina pectoris; E78.5 Hyperlipidemia, unspecified; K21.9 Gastro-esophageal reflux disease without esophagitis; F41.9 Anxiety disorder, unspecified; E11.22 Type 2 diabetes mellitus with diabetic chronic kidney disease; F17.210 Nicotine dependence, cigarettes, uncomplicated; G89.4 Chronic pain syndrome; Z79.01 Long term (current) use of anticoagulants; Z79.899 Other long term (current) drug therapy
CPT/HCPCS: 36415; 71046; 80048; 80061; 80076; 80307; 81001; 82550; 83690; 83735; 83880; 84443; 84484; 85025; 85379; 85610; 85730; 87086; 93005; 93970; 94640; 96374; 96375; 99285; 99406; G0378; J1650; J1885; J7120; G0379

== ENCOUNTER → 2019-09-09 | Outpatient (CLI) | payer MEDICARE, MEDICAID ==
[~2019-09-09] MED LIST: ARIP10TA9 PO; BUPR300T92 PO; CARV12.547 PO; CARV6.25 PO; FENO145T3 PO; FESO8TAB PO; ISOS120T4 PO; LEVO500T59 PO; LISI-338 PO; MEMA10TA PO; METF-658 PO; METH10TA2 PO; OXYC1TAB19 PO; PANT40TA5 PO; PRAV20TA2 PO; PREG150C PO; SPIR25TA5 PO; WARF6TAB PO
--- NOTE | 2019-09-09 13:29 | CARD ---
MR#: [id number] Date of Study: 09/09/2019 Ordering Physician: OCTAVIO BRANCH, Referring Physician: OCTAVIO BRANCH, Tech: Kylie Soria [facility] APPROVED REPORT EXAM: Two-dimensional and M-mode echocardiogram with Doppler and color Doppler. Other Information Quality : Good INDICATION Chest Pain 2D DIMENSIONS RVDd3.2 (2.9-3.5cm)Left Atrium(2D)4.0 (1.6-4.0cm) IVSd1.1 (0.7-1.1cm)Aortic Root(2D)2.9 (2.0-3.7cm) LVDd5.1 (3.9-5.9cm)LVOT Diameter2.0 (1.8-2.4cm) PWd1.1 (0.7-1.1cm)LVDs3.0 (2.5-4.0cm) FS (%) 30.0 %SV85.6 ml LVEF(%)60.0 (>50%) Aortic Valve AoV Peak Jose.137.8cm/sAoV VTI27.6cm AO Peak GR.7.6mmHgLVOT Peak Jose.111.5cm/s LVOT VTI 24.85cmAO Mean GR.5mmHg FARHAD (VMAX)2.58co0XAT (VTI)2.94cm2 Mitral Valve MV E Zkgevvuh650.4cm/sMV DECEL RRPR083nu MV A Vpvgapsp46.6cm/sE/A Ratio1.2 Tricuspid Valve TR P. Xgnysvtx844ah/sRAP [id number] TR Peak Gr.39fhEvTYZJ50bpQa Pulmonary Vein S1 Rudmuiwp38.1cm/sD2 Amgwwoma49.1cm/s LEFT VENTRICLE The left ventricle is normal size. There is normal left ventricular wall thickness. The left ventricu lar systolic function is normal. The Ejection Fraction is 55-60%. There is normal LV segmental wall m otion. RIGHT VENTRICLE The right ventricle is normal size. The right ventricular systolic function is normal. ATRIA The left atrium is mildly dilated. The right atrium size is normal. The interatrial septum is intact with no evidence for an atrial septal defect or patent foramen ovale as noted on 2-D or Doppler imagi ng. AORTIC VALVE The aortic valve is calcified but opens well. Doppler and Color Flow revealed no significant aortic r egurgitation. There is no significant aortic valvular stenosis. MITRAL VALVE The mitral valve is calcified but opens well. Posterior mitral annular calcification is mild. There i s no evidence of mitral valve prolapse. There is no mitral valve stenosis. Doppler and Color-flow rev ealed trace mitral regurgitation. TRICUSPID VALVE The tricuspid valve is normal in structure and function. Doppler and Color Flow revealed mild tricusp id regurgitation. The PA pressure was estimated at 31 mmHg. There is no tricuspid valve stenosis. PULMONIC VALVE The pulmonic valve is not well visualized. Doppler and Color Flow revealed no pulmonic valvular regur gitation. There is no pulmonic valvular stenosis. GREAT VESSELS The aortic root is normal in size. The ascending aorta is normal in size. The IVC is normal in size a nd collapses >50% with inspiration. PERICARDIAL EFFUSION There is no evidence of significant pericardial effusion. Critical Notification Critical Value: No <Conclusion> The left ventricular systolic function is normal. The Ejection Fraction is 55-60%. There is normal LV segmental wall motion. Trace mitral regurgitation. Mild tricuspid regurgitation. There is no evidence of significant pericardial effusion. Signed by : Esequiel Phillips, Electronically Approved : 09/09/2019 13:29:17
== END | disposition home or self-care (01) ==
LOC: ECHO 10:54
PROVIDERS: ATTEND Internal Medicine Cardiovascular Disease
DX: I08.3 Combined rheumatic disorders of mitral, aortic and tricuspid valves (principal); R07.9 Chest pain, unspecified
CPT/HCPCS: 93306

== ENCOUNTER → 2021-03-30 | Outpatient (CLI) | payer MEDICARE ==
[~2021-03-30] MED LIST changes: -LISI-338 PO; +LISI5TAB15 PO; +METH-570 PO; -METH10TA2 PO; -PANT40TA5 PO; +PANT40TA6 PO
[2021-03-30 13:07] LABS: ALBUMIN 3.7 g/dL (3.4-5.0); ALBUMIN/GLOBULIN RATIO 1.4 (1.0-1.7); CALCIUM 8.5 mg/dL (8.5-10.1); CREATININE 1.8 mg/dL (0.6-1.0); GFR 28.8; POTASSIUM 5.4 mmol/L (3.5-5.1); TOTAL BILIRUBIN 0.3 mg/dL (0.2-1.0); TOTAL PROTEIN 6.4 g/dL (6.4-8.2)
== END ==
LOC: LAB 09:46
PROVIDERS: ATTEND Physician Assistant
DX: I10 Essential (primary) hypertension (principal); N28.9 Disorder of kidney and ureter, unspecified; R60.9 Edema, unspecified
CPT/HCPCS: 36415; 80053

== ENCOUNTER 2021-04-08 08:33 | Emergency (ER) | payer MEDICARE ==
[~2021-04-08] VITALS: Ht 165.1 cm; Wt 109.8 kg
[2021-04-08 09:24] VITALS: BP 103/61
[2021-04-08] MEDS ORDERED: CEPH500T PO (10:27)
[2021-04-08] MEDS ORDERED: ONDA4TAB12 PO (10:27)
--- NOTE | 2021-04-08 10:28 | PHYS DOC ---
Past History Past Medical History: Anxiety, Bipolar, CAD, CHF, Depression, Diabetes, DVT, Hypertension, Other Additional Past Medical Histor: FACTOR 5 (KARELY ASCENCIO APRN) Past Surgical History: Cholecystectomy, Hip Replacement, Knee Replacement, Other Additional Past Surgical Histo: LOWER BACK (KARELY ASCENCIO APRN) Smoking: Cigarettes Alcohol Use: None (KARELY ASCENCIO APRN) General Adult EDM: Chief Complaint: CELLULITIS HPI: HPI: Patient is a 60-year-old female presents with nausea/vomiting/diarrhea. Patient states that symptoms started at 4 AM. Denies recent exposure to illness, denies fever. Patient is also reporting bilateral leg swelling and has history of cellulitis. Patient denies taking anything at home to treat symptoms. History of hypertension, hyperlipidemia, bipolar disorder, diabetes. (KARELY ASCENCIO APRN) Review of Systems: Review of Systems: ROS At least 10 ROS systems have been reviewed and are negative except as documented in the HPI. General: Negative except as outlined in HPI above. Skin: Negative except as outlined in HPI above. HEENT: Negative except as outlined in HPI above. Neck: Negative except as outlined in HPI above. Respiratory: Negative except as outlined in HPI above.. Cardiovascular: Negative except as outlined in HPI above. Abdomen: Negative except as outlined in HPI above. : Negative except as outlined in HPI above. Back/MSK: Negative except as outlined in HPI above. Neuro: Negative except as outlined in HPI above. Psych: Negative except as outlined in HPI above. (KARELY ASCENCIO APRN) Allergies: Allergies: Allergies Coded Allergies Type Severity Reaction Last Updated Verified fluoxetine Allergy Intermediate 07/13/19 Yes I S O L A T I O N *CONTACT* Allergy Unknown 07/17/19 Yes (KARELY ASCENCIO ASBESTOS SHINGLE INSPECTOR) Physical Exam: PE: Constitutional: Well developed, well nourished, no acute distress, non-toxic appearance. [] HENT: Normocephalic, atraumatic, bilateral external ears normal, oropharynx moist, no oral exudates, nose normal. [] Eyes: PERRLA, EOMI, conjunctiva normal, no discharge. [] Neck: Normal range of motion, no tenderness, supple, no stridor. [] Cardiovascular:Heart rate regular rhythm, no murmur [] Lungs & Thorax: Bilateral breath sounds clear to auscultation [] Abdomen: Bowel sounds normal, soft, no tenderness Skin: 1+ pitting edema in bilateral legs, red, tender Back: No tenderness, no CVA tenderness. [] Extremities: Bilateral leg tenderness, ROM intact, mild edema Neurologic: Alert and oriented X 3, normal motor function, normal sensory function, no focal deficits noted. [] Psychologic: Affect normal, judgement normal, mood normal. [] (KARELY ASCENCIO APRN) Current Patient Data: Vital Signs: Vital Signs Date Time Temp Pulse Resp B/P (MAP) Pulse Ox O2 Delivery O2 Flow Rate FiO2 04/08/21 09:24 98.4 98 16 103/61 (75) 95 Room Air (KARELY ASCENCIO APRN) EKG: EKG: [] (KARELY ASCENCIO APRN) Radiology/Procedures: Radiology/Procedures: [] (KARELY ASCENCIO APRN) Heart Score: C/O Chest Pain: No Risk Factors: Risk Factors: DM, Current or recent (<one month) smoker, HTN, HLP, family history of CAD, obesity. Risk Scores: Score 0 - 3: 2.5% MACE over next 6 weeks - Discharge Home Score 4 - 6: 20.3% MACE over next 6 weeks - Admit for Clinical Observation Score 7 - 10: 72.7% MACE over next 6 weeks - Early Invasive Strategies (KARELY ASCENCIO APRN) Course & Med Decision Making: Course & Med Decision Making Pertinent Labs and Imaging studies reviewed. (See chart for details) [] 60-year-old female presents with nausea/vomiting/diarrhea that started at 4 AM. Patient also has bilateral leg swelling with +1 pitting edema. Patient has not taken any of her medications this morning due to vomiting. Patient's nausea treated in the emergency room. Patient also sent home with Keflex to treat cellulitis. Patient states that she has a history of cellulitis and mild leg swelling is baseline. Patient is afebrile. Advised patient to follow-up with PCP if symptoms do not improve. Patient most likely has viral gastroenteritis and bilateral leg cellulitis. Discussed return precautions. Patient agrees with discharge instructions. (KARELY ASCENCIO APRN) Dragon Disclaimer: Dragon Disclaimer: This electronic medical record was generated, in whole or in part, using a voice recognition dictation system. (KARELY ASCENCIO APRN) Attending Co-Sign The patient was seen and interviewed as well as examined at the bedside. The chart was reviewed. The case was discussed. Agree with the plan of care. (JOSE CHAUDHARI DO) Departure Departure: Impression: Primary Impression: Nausea vomiting and diarrhea Additional Impression: Cellulitis Disposition: 01 HOME / SELF CARE / HOMELESS Condition: STABLE Referrals: TY GARDNER (PCP) Patient Instructions: Nausea and Vomiting, [id number] Additional Instructions: You were seen in the emergency room for nausea/vomiting/diarrhea along with bilateral leg cellulitis. I am sending you home with a prescription for Zofran to help with nausea. Make sure you are drinking plenty of fluids. I am also sending you home with a prescription for Keflex. Please make sure you take in full and as directed. If symptoms do not improve please follow-up with your PCP. If you have worsening symptoms or concerns return to the emergency room. EMERGENCY DEPARTMENT GENERAL DISCHARGE INSTRUCTIONS Thank you for coming to [facility] (ED) today and trusting us with you care. We trust that you had a positivie experience in our Emergency Department. If you wish to speak to the department management, you may call the director at [phone]. YOUR FOLLOW UP INSTRUCTIONS ARE FOLLOWS: 1. Do you have a private Doctor? If you do not have a private doctor, please ask for a resource list of physicians or clinics that may be able to assist you with follow up care. 2. The Emergency Physician has interpreted your x-rays. The X-Ray specialist will also review them. If there is a change in the findings, you will be notified in 48 hours when at all possible. 3. A lab test or culture has been done, your results will be reviewed and you will be notified if you need a change in treatment. ADDITIONAL INSTRUCTIONS AND INFORMATION: 1. Your care today has been supervised by a physician who is specially trained in emergency care. Many problems require more than one evaluation for a complete diagnosis and treatment. We recommend that you schedule your follow up appointment as recommended to ensure complete treatment of you illness or injury. If you are unable to obtain follow up care and continue to have a problem, or if your condition worsens, we recommend that you return to the ED. 2. We are not able to safely determine your condition over the phone nor are we able to give sound medical advice over the phone. For these safety reasons, if you call for medical advice we will ask you to come to the ED for further evaluation. 3. If you have any questions regarding these discharge instructions please call the ED at [phone]. SAFETY INFORMATION: In the interest of safety, wellness, and injury prevention; we encourage you to wear your sealbelt, if you smoke; quite smoking, and we encourage family to use a protective helmet for bicycling and other sporting events that present an increased risk for head injury. IF YOUR SYMPTOMS WORSEN OR NEW SYMPTOMS DEVELOP, OR YOU HAVE CONCERNS ABOUT YOUR CONDITION; OR IF YOUR CONDITION WORSENS WHILE YOU ARE WAITING FOR YOUR FOLLOW UP APPO INTMENT; EITHER CONTACT YOUR PRIMARY CARE DOCTOR, THE PHYSICIAN WHOSE NAME AND NUMBER YOU WERE GIVEN, OR RETURN TO THE ED IMMEDIATELY. Scripts Cephalexin (CEPHALEXIN) 500 Mg Tablet 1 TAB PO BID for CELLUITIS for 5 Days, #10 TAB Prov: KARELY ASCENCIO APRN 04/08/21 Ondansetron (ONDANSETRON ODT) 4 Mg Tab.rapdis 4 MG PO TID PRN PRN for NAUSEA for 3 Days, #10 TAB Prov: KARELY ASCENCIO APRN 04/08/21 KARELY ASCENCIO APRN Apr 08, 2021 10:28 JOSE CHAUDHARI DO Apr 09, 2021 06:08
[2021-04-08] MEDS ORDERED: ONDANSETRON ODT 4 MG TAB.RAPDIS PO ONE (10:30)
[2021-04-10] MEDS ORDERED: WARF10TA40 PO ×3 (17:45)
[2021-04-10] MEDS ORDERED: OXYB10TA26 PO (17:45)
== END 2021-04-08 10:32 | disposition home or self-care (01) ==
LOC: ER 08:33
DX: R11.2 Nausea with vomiting, unspecified (principal); R19.7 Diarrhea, unspecified; L03.116 Cellulitis of left lower limb; L03.115 Cellulitis of right lower limb; F41.9 Anxiety disorder, unspecified; F31.9 Bipolar disorder, unspecified; I11.0 Hypertensive heart disease with heart failure; I50.9 Heart failure, unspecified; I25.10 Atherosclerotic heart disease of native coronary artery without angina pectoris; E11.9 Type 2 diabetes mellitus without complications; F17.210 Nicotine dependence, cigarettes, uncomplicated; Z86.718 Personal history of other venous thrombosis and embolism; Z88.8 Allergy status to other drugs, medicaments and biological substances
CPT/HCPCS: 99283; Q0162

== ENCOUNTER 2021-04-24 11:32 | Emergency (ER) | payer MEDICARE ==
[~2021-04-24] VITALS: Ht 165.1 cm; Wt 115.5 kg
[~2021-04-24 11:32] MED LIST changes: +CEPH500T PO; +ONDA4TAB12 PO; +OXYB10TA26 PO; +WARF10TA40 PO
[2021-04-24 11:35] VITALS: BP 135/68
[2021-04-24] MEDS ORDERED: IV RINGERS SOLUTION,LACTATED 1,000 ML IV ONE (11:45)
[2021-04-24] MEDS ORDERED: ONDANSETRON PF 4 MG/2 ML VIAL. IVP ONE (11:45)
[2021-04-24 12:52] LABS: BASO % 1 % (0-3); CALCIUM 9.1 mg/dL (8.5-10.1); CREATININE 1.5 mg/dL (0.6-1.0); EOS # 0.2 x10^3/uL (0.0-0.7); EOS % 3 % (0-3); GFR 35.5; HEMATOCRIT 36.5 % (36.0-47.0); HEMOGLOBIN 12.1 g/dL (12.0-15.5); LYMPH # 1.4 x10^3/uL (1.0-4.8); LYMPH % 23 % (24-48); MEAN CORPUSCULAR HEMOGLOBIN 31 pg (25-35); MEAN CORPUSCULAR HGB CONC 33 g/dL (31-37); MEAN CORPUSCULAR VOLUME 92 fL (79-100); MONO # 0.4 x10^3/uL (0.0-1.1); MONO % 7 % (0-9); NEUT % 66 % (31-73); PLATELET COUNT 239 x10^3/uL (140-400); RED BLOOD COUNT 3.96 x10^6/uL (3.50-5.40); RED CELL DISTRIBUTION WIDTH 16.3 % (11.5-14.5)
[2021-04-24 13:00] LABS: ALBUMIN/GLOBULIN RATIO 1.2 (1.0-1.7); MAGNESIUM 1.9 mg/dL (1.8-2.4); TOTAL BILIRUBIN 0.5 mg/dL (0.2-1.0); TOTAL PROTEIN 7.3 g/dL (6.4-8.2)
[2021-04-24 13:07] LABS: BACTERIA,URINE FEW /HPF (0-FEW); CLARITY,URINE CLEAR; COLOR,URINE YELLOW; GLUCOSE,URINE NEG (NEG); NITRITE,URINE NEG (NEG); RBC,URINE OCC /HPF (0-2); SQUAMOUS EPITHELIAL CELL,UR FEW /LPF; UROBILINOGEN,URINE 0.2 mg/dL (0.2 mg/dL)
--- NOTE | 2021-04-24 13:29 | PHYS DOC ---
Past History Past Medical History: Anxiety, Bipolar, CAD, CHF, Depression, Diabetes, DVT, Hypertension, Other Additional Past Medical Histor: FACTOR 5 (TAMERA GONG) Past Surgical History: Other Additional Past Surgical Histo: LOWER BACK (TAMERA GONG) Smoking: Cigarettes Alcohol Use: None Drug Use: None (TAMERA GONG) General Adult EDM: Chief Complaint: FLANK PAIN HPI: HPI: Patient is a 60 year old female who presents with bilateral flank pain that began yesterday, midmorning. Her pain is severe when present, but intermittent. She denies pain at this time. Patient reports she was discharged from the hospital about 2 weeks ago for acute kidney injury secondary to toxicity from diuretics. She reports associated nausea, which is similar to her symptomology when she was admitted for acute renal failure. Patient denies hematuria, dysuria, diarrhea, constipation or any other complaints. (TAMERA GONG) Review of Systems: Review of Systems: Constitutional: Denies fever, chills or generalized weakness Eyes: Denies change in visual acuity, visual field deficits or discharge HENT: Denies ear pain, nasal congestion or sore throat Respiratory: Denies cough or shortness of breath Cardiovascular: Denies chest pain, palpitations or edema GI: See HPI : See HPI Musculoskeletal: Denies back pain or joint pain Integument: Denies rash or other skin lesion Neurologic: Denies headache, focal weakness or sensory changes (TAMERA GONG) Current Medications: Current Meds: Current Medications Medications (Trade) Dose Ordered Sig/Lisa Start Time Stop Time Status Last Admin Dose Admin Lactated Ringer's 1,000 ml @ 1,000 mls/hr 1X ONCE 04/24/21 11:45 04/24/21 12:44 DC 04/24/21 11:45 1,000 MLS/HR Ondansetron HCl (Zofran) 4 mg 1X ONCE 04/24/21 11:45 04/24/21 11:48 DC 04/24/21 12:04 4 MG (TAMERA GONG) Allergies: Allergies: Allergies Coded Allergies Type Severity Reaction Last Updated Verified fluoxetine Allergy Intermediate 04/24/21 Yes I S O L A T I O N *CONTACT* Allergy Unknown 04/24/21 Yes pregabalin Allergy Unknown 04/24/21 Yes (TAMERA GONG) Physical Exam: PE: Constitutional: Well developed, well nourished, no acute distress, non-toxic appearance. HENT: Normocephalic, atraumatic, bilateral external ears normal, nose normal. Eyes: EOMI, conjunctiva normal, no discharge. Neck: Normal range of motion, no stridor. Abdomen: Bowel sounds normal, soft, no tenderness, no masses, no pulsatile masses. Skin: Warm, dry, no erythema, no rash. Back: No step-off, no bony or paraspinal tenderness, no CVA tenderness. Extremities: No tenderness, no cyanosis, no clubbing, ROM intact, no edema. Neurologic: Alert and oriented x4, no focal deficits noted. (TAMERA GONG) Current Patient Data: Labs: Laboratory Tests Test 04/24/21 11:54 White Blood Count 6.0 x10^3/uL (4.0-11.0) Red Blood Count 3.96 x10^6/uL (3.50-5.40) Hemoglobin 12.1 g/dL (12.0-15.5) Hematocrit 36.5 % (36.0-47.0) Mean Corpuscular Volume 92 fL (79-100) Mean Corpuscular Hemoglobin 31 pg (25-35) Mean Corpuscular Hemoglobin Concent 33 g/dL (31-37) Red Cell Distribution Width 16.3 % (11.5-14.5) H Platelet Count 239 x10^3/uL (140-400) Neutrophils (%) (Auto) 66 % (31-73) Lymphocytes (%) (Auto) 23 % (24-48) L Monocytes (%) (Auto) 7 % (0-9) Eosinophils (%) (Auto) 3 % (0-3) Basophils (%) (Auto) 1 % (0-3) Neutrophils # (Auto) 4.0 x10^3uL (1.8-7.7) Lymphocytes # (Auto) 1.4 x10^3/uL (1.0-4.8) Monocytes # (Auto) 0.4 x10^3/uL (0.0-1.1) Eosinophils # (Auto) 0.2 x10^3/uL (0.0-0.7) Basophils # (Auto) 0.0 x10^3/uL (0.0-0.2) Urine Collection Type Unknown Urine Color Yellow Urine Clarity Clear Urine pH 6.0 Urine Specific Harrison 1.015 Urine Protein Neg (NEG-TRACE) Urine Glucose (UA) Neg mg/dL (NEG) Urine Ketones (Stick) Neg mg/dL (NEG) Urine Blood Trace (NEG) Urine Nitrite Neg (NEG) Urine Bilirubin Neg (NEG) Urine Urobilinogen Dipstick 0.2 mg/dL (0.2 mg/dL) Urine Leukocyte Esterase Small (NEG) Urine RBC Occ /HPF (0-2) Urine WBC 11-20 /HPF (0-4) Urine Squamous Epithelial Cells Few /LPF Urine Bacteria Few /HPF (0-FEW) Sodium Level 135 mmol/L (136-145) L Potassium Level 4.0 mmol/L (3.5-5.1) Chloride Level 105 mmol/L (98-107) Carbon Dioxide Level 22 mmol/L (21-32) Anion Gap 8 (6-14) Blood Urea Nitrogen 23 mg/dL (7-20) H Creatinine 1.5 mg/dL (0.6-1.0) H Estimated GFR (Cockcroft-Gault) 35.5 BUN/Creatinine Ratio 15 (6-20) Glucose Level 150 mg/dL (70-99) H Calcium Level 9.1 mg/dL (8.5-10.1) Magnesium Level 1.9 mg/dL (1.8-2.4) Total Bilirubin 0.5 mg/dL (0.2-1.0) Aspartate Amino Transferase (AST) 22 U/L (15-37) Alanine Aminotransferase (ALT) 46 U/L (14-59) Alkaline Phosphatase 66 U/L (46-116) Total Protein 7.3 g/dL (6.4-8.2) Albumin 4.0 g/dL (3.4-5.0) Albumin/Globulin Ratio 1.2 (1.0-1.7) Vital Signs: Vital Signs Date Time Temp Pulse Resp B/P (MAP) Pulse Ox O2 Delivery O2 Flow Rate FiO2 04/24/21 11:35 97.7 68 20 135/68 (90) 99 Room Air ([facility] Radiology/Procedures: Radiology/Procedures: PROCEDURE: CT ABDOMEN PELVIS WO CONTRAST EXAMINATION: CT abdomen and pelvis without IV contrast. INDICATION:60 years, Female, flank pain, nausea. TECHNIQUE: Axial CT images of the abdomen and pelvis were obtained. Coronal and sagittal reformatted performed. COMPARISON: None. Exposure: One or more of the following individualized dose reduction techniques were utilized for this examination: 1. Automated exposure control 2. Adjustment of the mA and/or kV according to patient size 3. Use of iterative reconstruction technique. FINDINGS: LOWER CHEST: There is a 2 mm solid pulmonary nodule in the right lower lobe. ABDOMEN/PELVIS: Within the limitation of noncontrast exam, Mild hepatomegaly with diffuse steatosis, measures 21 cm in length. Cholecystectomy. No biliary ductal dilation. Unremarkable spleen. Mildly atrophic pancreas with fat infiltration. Nodular thickening of the left adrenal gland without discrete nodule. Right adrenal gland is unremarkable. No hydronephrosis or nephrolithiasis. There is a 5 mm, fat density lesion in the medial cortex interpolar right kidney. Diffuse urothelial thickening of the left ureter without significant adjacent fat stranding. No bowel obstruction. Normal appendix. Moderate aortoiliac atherosclerotic calcifications without dilation. No pneumoperitoneum or ascites. No lympha denopathy. Unremarkable urinary bladder and uterus. MUSCULOSKELETAL STRUCTURES: Small fat-containing hernia. Grade 1 anterolisthesis of L5 over S1. Posterior hardware instrumentation at L5-S1. Multilevel degenerative changes in the spine. IMPRESSION: 1. No obstructive uropathy or urolithiasis. 2. Diffuse urothelial thickening of the left ureter without significant adjacent fat stranding. Correlate for urinary tract infection. 3. A 5 mm fat density lesion in the medial cortex of the interpolar right kidney, likely a angiomyolipoma. 4. Hepatomegaly with diffuse steatosis. 5. A 2 mm solid pulmonary nodule in the right lower lobe. High-risk patient, consider 12 months follow-up with CT chest. 6. Other chronic/incidental findings, as described above. Electronically signed by: Daniel Valdez MD (04/24/2021 1:43 PM) [facility] (TAMERA GONG) Heart Score: C/O Chest Pain: No (TAMERA GONG) Course & Med Decision Making: Course & Med Decision Making Pertinent Labs and Imaging studies reviewed. (See chart for details) Patient is a 60-year-old female with recent diagnosis of acute renal failure secondary to diuretic overuse who presents with bilateral flank pain, nausea and vomiting. Work-up today will include labs, urinalysis. Will defer CT imaging until labs result. Urine does reveal small amount of hematuria. CT abdomen pelvis without contrast ordered to evaluate for renal stone. Patient states that her nausea is very well resolved and she continues to be pain-free. Imaging reveals a 0.5 cm angiomyolipoma as well as a small pulmonary nodule. Patient was made aware of these findings and given appropriate specialty follow- up. Return precautions provided. Patient understands and is agreeable to discharge plan. (TAMERA GONG) Dragon Disclaimer: Dragon Disclaimer: This electronic medical record was generated, in whole or in part, using a voice recognition dictation system. (TAMERA GONG) Departure Departure: Impression: Primary Impression: Nausea Additional Impressions: Renal angiomyolipoma Pulmonary nodule Disposition: HOME / SELF CARE / HOMELESS Condition: IMPROVED Referrals: TY GARDNER (PCP) GIO MEDINA MD Patient Instructions: Nausea and Vomiting, [id number] Additional Instructions: EMERGENCY DEPARTMENT GENERAL DISCHARGE INSTRUCTIONS Thank you for coming to [facility] (ED) today and trusting us with you care. We trust that you had a positive experience in our Emergency Department. If you wish to speak to the department management, you may call the director at [phone]. YOUR FOLLOW UP INSTRUCTIONS ARE FOLLOWS: 1. Follow up with your primary care doctor. If you do not have a primary d octor, please ask for a resource list of physicians or clinics that may be able to assist you with follow up care. 2. The emergency provider has interpreted your imaging studies, if any were ordered. The radiology independent living specialist also reviewed them. If there is a change in the findings, you will be notified in 48 hours when at all possible. 3. If a lab test or culture has been done, your results will be reviewed and you will be notified if you need a change in treatment. 4. Follow instructions verbalized to you and refer to the printouts if needed. ADDITIONAL INSTRUCTIONS AND INFORMATION: 1. Your care today has been supervised by a physician who is specially trained in emergency care. Many problems require more than one evaluation for a complete diagnosis and treatment. We recommend that you schedule your follow up appointment as recommended to ensure complete treatment of you illness or injury. If you are unable to obtain follow up care and continue to have a problem, or if your condition worsens, we recommend that you return to the ED. 2. We are not able to safely determine your condition over the phone nor are we able to give sound medical advice over the phone. For these safety reasons, if you call for medical advice we will ask you to come to the ED for further evaluation. 3. If you have any questions regarding these discharge instructions please call the ED at [phone]. SAFETY INFORMATION: In the interest of safety, wellness, and injury prevention; we encourage you to wear your seat belt, if you smoke; quite smoking, and we encourage family to use a protective helmet for bicycling and other sporting events that present an increased risk for head injury. IF YOUR SYMPTOMS WORSEN OR NEW SYMPTOMS DEVELOP, OR YOU HAVE CONCERNS ABOUT YOUR CONDITION; OR IF YOUR CONDITION WORSENS WHILE YOU ARE WAITING FOR YOUR FOLLOW UP APPOINTMENT; EITHER CONTACT YOUR PRIMARY CARE DOCTOR, THE PHYSICIAN WHOSE NAME AND NUMBER YOU WERE GIVEN, OR RETURN TO THE ED IMMEDIATELY. Scripts Ondansetron (ONDANSETRON ODT) 4 Mg Tab.rapdis 1 TAB PO PRN Q6-8HRS for n/v, #20 TAB Prov: TAMERA GONG 04/24/21 Attending Signature Attending Signature I have reviewed the PA/TALENT ACQUISITION RELATIONSHIP MANAGER's note and plan of care. I was available for consultation as needed during the patient's visit in the emergency department. I agree with the clinical impression, plan, and disposition. (OLIVIA OSCAR DO) TAMERA GONG Apr 24, 2021 13:29 OLIVIA OSCAR DO Apr 25, 2021 00:55
--- NOTE | 2021-04-24 13:45 | RAD ---
EXAMINATION: CT abdomen and pelvis without IV contrast. INDICATION:60 years, Female, flank pain, nausea. TECHNIQUE: Axial CT images of the abdomen and pelvis were obtained. Coronal and sagittal reformatted performed. COMPARISON: None. Exposure: One or more of the following individualized dose reduction techniques were utilized for thi s examination: 1. Automated exposure control 2. Adjustment of the mA and/or kV according to patient size 3. Use of iterative reconstruction technique. FINDINGS: LOWER CHEST: There is a 2 mm solid pulmonary nodule in the right lower lobe. ABDOMEN/PELVIS: Within the limitation of noncontrast exam, Mild hepatomegaly with diffuse steatosis, measures 21 cm in length. Cholecystectomy. No biliary ducta l dilation. Unremarkable spleen. Mildly atrophic pancreas with fat infiltration. Nodular thickening o f the left adrenal gland without discrete nodule. Right adrenal gland is unremarkable. No hydronephro sis or nephrolithiasis. There is a 5 mm, fat density lesion in the medial cortex interpolar right kid josephine. Diffuse urothelial thickening of the left ureter without significant adjacent fat stranding. No bowel obstruction. Normal appendix. Moderate aortoiliac atherosclerotic calcifications without dil ation. No pneumoperitoneum or ascites. No lymphadenopathy. Unremarkable urinary bladder and uterus. MUSCULOSKELETAL STRUCTURES: Small fat-containing hernia. Grade 1 anterolisthesis of L5 over S1. Posterior hardware instrumentatio n at L5-S1. Multilevel degenerative changes in the spine. IMPRESSION: 1. No obstructive uropathy or urolithiasis. 2. Diffuse urothelial thickening of the left ureter without significant adjacent fat stranding. Ervin elate for urinary tract infection. 3. A 5 mm fat density lesion in the medial cortex of the interpolar right kidney, likely a angiomyol ipoma. 4. Hepatomegaly with diffuse steatosis. 5. A 2 mm solid pulmonary nodule in the right lower lobe. High-risk patient, consider 12 months foll ow-up with CT chest. 6. Other chronic/incidental findings, as described above. Electronically signed by: Daniel Valdez MD (04/24/2021 1:43 PM) [facility]
[2021-04-24] MEDS ORDERED: ONDA4TAB12 PO (13:54)
== END 2021-04-24 14:35 | disposition home or self-care (01) ==
LOC: ER 11:32
DX: D17.71 Benign lipomatous neoplasm of kidney (principal); R91.1 Solitary pulmonary nodule; F41.9 Anxiety disorder, unspecified; F31.9 Bipolar disorder, unspecified; I25.10 Atherosclerotic heart disease of native coronary artery without angina pectoris; I11.0 Hypertensive heart disease with heart failure; I50.9 Heart failure, unspecified; E11.9 Type 2 diabetes mellitus without complications; Z86.718 Personal history of other venous thrombosis and embolism; F17.210 Nicotine dependence, cigarettes, uncomplicated; Z88.8 Allergy status to other drugs, medicaments and biological substances
CPT/HCPCS: 36415; 74176; 80053; 81001; 83735; 85025; 87086; 96361; 96374; 99284; J2405; J7120

== ENCOUNTER 2021-04-29 17:15 | Inpatient (IN) | payer MEDICARE ==
[~2021-04-29] VITALS: Ht 165.1 cm; Wt 117.5 kg
--- NOTE | 2021-04-29 18:41 | PHYS DOC ---
Past History Past Medical History: Anxiety, Bipolar, CAD, CHF, Depression, Diabetes, DVT, Hypertension, Other Additional Past Medical Histor: FACTOR 5, cellulitis, chronic hip and feet pain Past Surgical History: Other Additional Past Surgical Histo: LOWER BACK Smoking: Cigarettes Alcohol Use: None Drug Use: None General Adult EDM: Chief Complaint: LOWER EXTREMITY SWELLING HPI: HPI: 60-year-old female presents with bilateral lower extremity swelling. The patient is concerned that she may be having lower extremity cellulitis. She has had this in the past. It seems to happen spontaneously. She has no antibiotic allergies. The patient takes spironolactone and Lasix on alternating days for her lower extremity swelling. She does not see a physiognomist. She is managed by her primary care physician. Patient denies fever or chills. She has not had any significant shortness of breath or chest pain. Review of Systems: Review of Systems: Constitutional: Denies fever or chills Eyes: Denies change in visual acuity HENT: Denies nasal congestion or sore throat Respiratory: Denies cough or shortness of breath Cardiovascular: Bilateral lower extremity edema GI: Denies abdominal pain, nausea, vomiting, bloody stools or diarrhea : Denies dysuria Musculoskeletal: Denies back pain or joint pain Integument: Denies rash Neurologic: Denies headache, focal weakness or sensory changes Endocrine: Denies polyuria or polydipsia Lymphatic: Denies swollen glands Psychiatric: Denies depression or anxiety Allergies: Allergies: Allergies Coded Allergies Type Severity Reaction Last Updated Verified fluoxetine Allergy Intermediate 04/24/21 Yes I S O L A T I O N *CONTACT* Allergy Unknown 04/24/21 Yes pregabalin Allergy Unknown 04/24/21 Yes Physical Exam: PE: Constitutional: Well developed, well nourished, no acute distress, non-toxic appearance. [] HENT: Normocephalic, atraumatic, bilateral external ears normal, oropharynx moist, no oral exudates, nose normal. [] Eyes: PERRLA, EOMI, conjunctiva normal, no discharge. [] Neck: Normal range of motion, no tenderness, supple, no stridor. [] Cardiovascular: Heart rate regular rhythm, no murmur [] Lungs & Thorax: Bilateral breath sounds clear to auscultation [] Abdomen: Bowel sounds normal, soft, no tenderness, no masses, no pulsatile masses. [] Skin: Warm, dry, erythema but no significant warmth of the bilateral lower legs. [] Back: No tenderness, no CVA tenderness. [] Extremities: No tenderness, no cyanosis, no clubbing, ROM intact, 3+ pitting edema bilateral lower extremities to at least the knees. [] Neurologic: Alert and oriented X 3, normal motor function, normal sensory function, no focal deficits noted. [] Psychologic: Affect normal, judgement normal, mood normal. [] Current Patient Data: Vital Signs: Vital Signs Date Time Temp Pulse Resp B/P (MAP) Pulse Ox O2 Delivery O2 Flow Rate FiO2 04/29/21 17:55 97.8 77 20 124/62 (82) 99 Room Air EKG: EKG: Sinus rhythm, rate 68, normal axis, no ST elevation or depression. [] Radiology/Procedures: Radiology/Procedures: [] Impressions: Exam Date: 04/29/2021 6:32 PM XR CHEST 1V Indication: Reason: swelling / Spl. Instructions: / History: . Comparison: April 10, 2021 FINDINGS/ IMPRESSION: The cardiac silhouette and pulmonary vasculature are within normal limits. There is no focal consolidation, pleural effusion or pneumothorax. The visualized osseous structures are intact. Electronically signed by: Farzaneh Hernandez MD (04/29/2021 7:04 PM) [facility] DICTATED AND SIGNED BY: FARZANEH HERNANDEZ MD DATE: 04/29/211901 CC: JOSE CHAUDHARI DO; TY GARDNER PAC ~ Heart Score: C/O Chest Pain: N/A Risk Factors: Risk Factors: DM, Current or recent (<one month) smoker, HTN, HLP, family history of CAD, obesity. Risk Scores: Score 0 - 3: 2.5% MACE over next 6 weeks - Discharge Home Score 4 - 6: 20.3% MACE over next 6 weeks - Admit for Clinical Observation Score 7 - 10: 72.7% MACE over next 6 weeks - Early Invasive Strategies Course & Med Decision Making: Course & Med Decision Making Pertinent Labs and Imaging studies reviewed. (See chart for details) The patient's lower extremity is borderline for cellulitis. Her labs remarkable for an elevated creatinine of 1.8. Review of her chart shows that she has had similar and more elevated creatinines than this. Her proBNP is in the 200s. Her chest x-ray is negative for acute findings. This makes me less suspicious for fluid overload I am more suspicious for cellulitis. I spoke with the patient and she usually fails oral antibiotics and ends up admitted to the hospital with IV antibiotics. I will go and place her on vancomycin and admit her to the hospital. I spoke with Dr. Head and he has accepted the patient for admission. [] Dragon Disclaimer: Edith Disclaimer: This electronic medical record was generated, in whole or in part, using a voice recognition dictation system. Departure Departure: Impression: Primary Impression: Cellulitis Disposition: ADMITTED INPATIENT Admitting Physician: Mariam Head Condition: STABLE Referrals: TY GARDNER (PCP) JOSE CHAUDHARI DO Apr 29, 2021 18:41
[2021-04-29 18:57] LABS: BASO # 0.1 x10^3/uL (0.0-0.2); BASO % 1 % (0-3); EOS # 0.2 x10^3/uL (0.0-0.7); EOS % 3 % (0-3); HEMATOCRIT 38.4 % (36.0-47.0); HEMOGLOBIN 12.8 g/dL (12.0-15.5); LYMPH # 1.4 x10^3/uL (1.0-4.8); LYMPH % 21 % (24-48); MEAN CORPUSCULAR HEMOGLOBIN 31 pg (25-35); MEAN CORPUSCULAR HGB CONC 33 g/dL (31-37); MEAN CORPUSCULAR VOLUME 92 fL (79-100); MONO # 0.6 x10^3/uL (0.0-1.1); MONO % 8 % (0-9); NEUT # 4.7 x10^3uL (1.8-7.7); NEUT % 68 % (31-73); PLATELET COUNT 253 x10^3/uL (140-400); RED BLOOD COUNT 4.16 x10^6/uL (3.50-5.40); RED CELL DISTRIBUTION WIDTH 16.2 % (11.5-14.5)
[2021-04-29 19:05] LABS: CALCIUM 9.2 mg/dL (8.5-10.1); CREATININE 1.8 mg/dL (0.6-1.0); GFR 28.8; POTASSIUM 3.6 mmol/L (3.5-5.1)
--- NOTE | 2021-04-29 19:06 | RAD ---
Exam Date: 04/29/2021 6:32 PM XR CHEST 1V Indication: Reason: swelling / Spl. Instructions: / History: . Comparison: April 10, 2021 FINDINGS/ IMPRESSION: The cardiac silhouette and pulmonary vasculature are within normal limits. There is no focal consolidation, pleural effusion or pneumothorax. The visualized osseous structures are intact. Electronically signed by: Bishop Hernandez MD (04/29/2021 7:04 PM) [facility]
[2021-04-29 19:17] LABS: ALBUMIN 4.2 g/dL (3.4-5.0); ALBUMIN/GLOBULIN RATIO 1.4 (1.0-1.7); TOTAL BILIRUBIN 0.3 mg/dL (0.2-1.0); TOTAL PROTEIN 7.1 g/dL (6.4-8.2)
[2021-04-29] MEDS ORDERED: VANCOMYCIN 2 GM in IV NORMAL SALINE 500ML 500 ML IV ONE (19:45)
[2021-04-29] MEDS ORDERED: ONDANSETRON PF 4 MG/2 ML VIAL. IVP PRN (20:00)
[2021-04-29 20:43] LABS: INFLUENZA A PATIENT NEGATIVE (NEGATIVE); INFLUENZA B PATIENT NEGATIVE (NEGATIVE)
--- NOTE | 2021-04-29 21:38 | NUR ---
The patient, OAR HERNANDEZ, 60 y/o, F admitted by REJI LESTER MD, was given written information regarding hospital policies, unit procedures and contact persons. Valuables were checked and left with pt.
[2021-04-29 21:50] VITALS: BP 104/58
[2021-04-29] MEDS: VANCOMYCIN PER PHARMACY MC PRN (22:09)
--- NOTE | 2021-04-29 22:15 | NUR ---
Pharmacy Vancomycin Dosing Note S:Consulted to monitor and dose vancomycin started 04/29/21. O:ORA HERNANDEZ is a 60 year old F with Cellulitis, . Height: 5 feet, 5 inches Weight: 115.2 kg [place] Body Weight: 57.00 Adjusted Body Weight: 80.28 Dosing Weight: Actual Other Antibiotics: None LABS: Last BUN: 24 Last Creatinine: 1.8 Creatinine Clearance: 42.65 Last WBC: 7.0 Vancomycin Dosing: Loading Dose: 2000 mg x1 Dosing Weight: Actual Target Trough: 10-20 A: Based on: Actual weight, renal function, and diagnosis P: 1. Begin Vancomycin 1500 mg IV q24h 2. Follow up Trough level on 05/01/21 at 1930 3. Pharmacy will continue to monitor, follow and adjust therapy as needed. FREDY PIERRE, 04/29/21 [id number]
--- NOTE | 2021-04-29 23:47 | EKG ---
[address] [address] Test Date: 2021-04-29 Test Time: 19:01:21 Pat Name: ORA HERNANDEZ Department: Room: 107 A Gender: F District Customs Director: : 1960 Requested By: JOSE CHAUDHARI Order Number: [id number] Reading MD: Harley Dolan MD Measurements Intervals [place] Rate: 68 P: 23 WV: 184 QRS: 47 QRSD: 100 T: 52 QT: 382 QTc: 406 Interpretive Statements SINUS RHYTHM Electronically Signed On 05-03-2021 7:14:29 CDT by Harley Dolan MD
[2021-04-29] MEDS ORDERED: WARF-31 PO (23:55)
[2021-04-29] MEDS ORDERED: VENL37.5 PO (23:55)
[2021-04-29] MEDS ORDERED: CYCL10TA19 PO (23:55)
[2021-04-29] MEDS ORDERED: SPIR50TA4 PO (23:55)
[2021-04-29] MEDS ORDERED: ISOS30TA68 PO (23:55)
[2021-04-29] MEDS ORDERED: CARV25TA2 PO (23:55)
[2021-04-29] MEDS ORDERED: SEMA0.25 SQ (23:55)
[2021-04-29] MEDS ORDERED: TORS100T3 PO (23:55)
[2021-04-29] MEDS ORDERED: WARF10TA40 PO (23:55)
[2021-04-29] MEDS ORDERED: POTA-112 PO (23:55)
--- NOTE | 2021-04-30 00:06 | NUR ---
Pt is pleasant, cooperative and oriented. She was able to adequately review medical history and recall medications from her list with little reference to her med cards. Pt was very sleepy during assessments and often fell asleep mid sentence. She states she gets maybe 4 hours of sleep per night d/t getting up to urinate. Pt states she has chronic pain all over..."hands, back, feet, legs, everywhere." She is resting currently. tm
[2021-04-30] MEDS ORDERED: ONDANSETRON ODT 4 MG TAB.RAPDIS PO PRN (05:30)
[2021-04-30 06:18] VITALS: BP 97/60
[2021-04-30] MEDS ORDERED: DEXTROSE 50% 25 GM / 50ML DISP.SYRIN. IV PRN (06:30)
[2021-04-30] MEDS ORDERED: metFORMIN XR 500 MG TAB.ER.24H PO SCH (08:00)
[2021-04-30] MEDS: SPIRONOLACTONE 25 MG TABLET PO SCH (08:18)
[2021-04-30] MEDS: OXYBUTYNIN CHLORIDE 5 MG TABLET PO SCH ×2 (08:18→20:01)
[2021-04-30] MEDS: VENLAFAXINE XR 37.5 MG CAP.ER.24H. PO SCH (08:19)
[2021-04-30] MEDS: CARVEDILOL 12.5 MG TABLET PO SCH ×2 (08:19→17:23)
[2021-04-30] MEDS: POTASSIUM CHLORIDE 10 MEQ TABLET.ER. PO SCH (08:20)
[2021-04-30] MEDS: PANTOPRAZOLE 40 MG TABLET. PO SCH (08:20)
[2021-04-30] MEDS: FENOFIBRATE NANOCRYSTALLIZED 145 MG TABLET PO SCH (08:20)
[2021-04-30] MEDS: ARIPiprazole 10 MG TABLET PO SCH (08:20)
[2021-04-30] MEDS: CYCLOBENZAPRINE 10 MG TABLET. PO SCH ×3 (08:20→20:00)
[2021-04-30] MEDS: ISOSORBIDE MONONITRATE ER 30 MG TAB.ER.24H PO SCH (08:21)
[2021-04-30] MEDS: INSULIN LISPRO 300 UNITS/3 ML VIAL. SQ SCH ×3 (08:24→17:25)
[2021-04-30] MEDS: buPROPion XL 300 MG TAB.ER.24H. PO SCH (09:00)
--- NOTE | 2021-04-30 10:45 | NUR ---
Nursing note PT in bed, verbalized, mild pain on extrimities, assessments done, medications administered per doctors orders. PT verbalized she is to take spirolactone today with K+. Pharmacy was notified and changes made. Critical value of INR was reported to doctor and orders put in place. PT given information on the risk and benefits of coumadin. PT verbalized no other needs, call light within reach, will continue to monitor.
[2021-04-30 11:25] VITALS: BP 101/61
[2021-04-30] MEDS: oxyCODONE/APAP 7.5/325 1 TAB TABLET PO PRN ×2 (11:38→20:00)
--- NOTE | 2021-04-30 12:43 | HP ---
DATE OF SERVICE: 04/30/2021 ADMIT DATE: 04/29/2021 HISTORY OF PRESENT ILLNESS: The patient is a 60-year-old female patient who presented to the Emergency Room of [facility] with bilateral lower extremity swelling. She was also concerned that she might have lower extremity cellulitis. She has had this in the past, it happens according to her spontaneously. She has no antibiotic allergies. She is on spironolactone and Lasix on alternating days for her lower extremity swelling. She does not see a threading machine tender. She is managed by her primary care physician at [facility]. However, she denied any chills, rigors or fever. She has not had any significant shortness of breath or chest pain. She was extensively evaluated in the Emergency Room and was found to have bilateral lower extremity cellulitis, was admitted for treatment with IV antibiotic. Her blood count was unremarkable. Her prothrombin time was 55.2, INR of 5.4 and her chemistry showed that she has chronic kidney disease with BUN of 24, creatinine 1.8. She was treated with IV vancomycin and continued on all her other medication. PAST MEDICAL HISTORY: Significant for type 2 diabetes mellitus, hypertension, hyperlipidemia, coronary artery disease status post myocardial infarction, chronic kidney disease, chronic obstructive pulmonary disease and diabetic peripheral neuropathy. PAST SURGICAL HISTORY: Significant for cholecystectomy, bilateral total knee arthroplasty, back surgery and uterine ablation. ALLERGIES: SHE IS ALLERGIC TO LYRICA AND PROZAC. MEDICATIONS: She is currently on the following medications: She is on cyclobenzaprine 10 mg 3 times a day; warfarin 5 mg Sunday, Sunday, Sunday and warfarin 10 mg Sunday, , Sunday, Sunday; fenofibrate nanocrystallized 145 mg once a day; pravastatin sodium 20 mg once a day; isosorbide mononitrate 30 mg once a day; carvedilol 25 mg twice a day; spironolactone 50 mg every other day; methadone 10 mg twice a day as needed; oxycodone/APAP 7.5/325 one tablet 3 times a day as needed; Wellbutrin-XL 300 mg daily; venlafaxine 37.5 mg once a day. She is on aripiprazole 10 mg p.o. daily, potassium chloride 10 mEq every other day, torsemide 100 mg every other day, Protonix 40 mg once a day, Ozempic 0.75 mg subcutaneously weekly and oxybutynin chloride 10 mg p.o. daily. FAMILY HISTORY: She has 2 brothers, younger, still alive and healthy. One brother, younger, but because of COVID about a year ago. Her father at age of 84 because of myocardial infarction, lung cancer. Mother is still alive at the age of 80. SOCIAL HISTORY: She lives with her mom. She has 2 sons and 2 daughters. She continued to smoke half a pack a day, does not drink alcohol or use recreational drugs. 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 PHYSICAL EXAMINATION: GENERAL: On arrival to the Emergency Room, she looked well and was clearly in no apparent respiratory distress. She was pale, not jaundiced, cyanosed, no lymphadenopathy, no thyromegaly, no jugular venous distention. No limb edema. VITAL SIGNS: Her heart rate was 77. Her blood pressure is 124/62, temperature 97.8, respiratory rate 20, and oxygen saturation was 99%. HEAD, EYES, EARS, NOSE AND THROAT: Normocephalic, atraumatic. NECK: Supple. HEART: Showed normal first and second heart sounds. No gallop or murmur. CHEST: Clear to auscultation. No crepitation or rhonchi. ABDOMEN: Distended, soft, nontender. NEUROLOGIC: She was grossly intact. LABORATORY DATA: Her white cell count was 7000, hemoglobin 12, hematocrit 38, MCV 92 and platelet count 253,000. Her chemistry showed a serum sodium 137, potassium 3.6, chloride 102, bicarbonate 29, anion gap of 7, BUN 29, creatinine 1.8. Estimated GFR was 28 mL per minute. Her glucose 108, calcium was 9.2. Total bilirubin, AST, ALT, alkaline phosphatase were normal. Her total protein 7.1, albumin was 4.2. Her prothrombin time was 55.2, INR of 5.4. Her influenza A and B as well as coronavirus by rapid testing were negative. ASSESSMENT AND PLAN: In summary, this is a 60-year-old female patient who was admitted yet again with another episode of bilateral lower extremity cellulitis. She has a multitude of medical problems including type 2 diabetes mellitus, hypertension, hyperlipidemia, coronary artery disease, chronic kidney disease, and chronic obstructive pulmonary disease. We will obviously continue with IV vancomycin. We have continued all her other medications. We will follow her closely and decide further management accordingly. HAY/NADINE DR: Charity TID: [id number]
[2021-04-30 15:04] VITALS: BP 109/63
--- NOTE | 2021-04-30 15:34 | NUR ---
Nursing note PT in bed, sitting, being assesed by the doctor, PT verbalized pain the lower extremities. Pain medication administered per doctors orders, and care to be continued. PT verbalized no other needs, call light within reach, bed lucked.
[2021-04-30] MEDS ORDERED: WARFARIN SODIUM 10 MG PO SCH (16:00)
[2021-04-30] MEDS: METHADONE 5 MG TABLET. PO PRN (17:30)
[2021-04-30 19:00] VITALS: BP 98/64
[2021-04-30] MEDS: ATORVASTATIN CALCIUM 10 MG TABLET. PO SCH (20:00)
[2021-04-30] MEDS: LACTOBACILLUS RHAMNOSUS GG 1 CAPSULE. PO SCH (20:00)
[2021-04-30] MEDS: VANCOMYCIN 1.5 GM in IV NORMAL SALINE 500ML 500 ML IV SCH (20:01)
[2021-04-30 21:43] VITALS: BP 98/64
--- NOTE | 2021-04-30 23:05 | PN ---
SUBJECTIVE: The patient is sitting on the edge of the bed comfortably, in no apparent distress. She continued to complain of pain, swelling and redness of both lower extremities. PHYSICAL EXAMINATION: GENERAL: When I examined her, she looked well and was clearly in no apparent respiratory distress. No pallor, jaundice, cyanosis or thyromegaly. No jugular venous distention, but marked bilateral lower limb edema. VITAL SIGNS: Her heart rate was 70, blood pressure was 97/60, temperature 97.5, respiratory rate was 18 and oxygen saturation was 91%. HEAD, EYES, EARS, NOSE AND THROAT: Normocephalic, atraumatic. NECK: Supple. HEART: Normal first and second heart sounds. No gallop, rub or murmur. CHEST: Clear to auscultation. No crepitation or rhonchi. ABDOMEN: Distended, soft, nontender. NEUROLOGIC: She was grossly intact. Her intake and output are incompletely recorded. LABORATORY DATA: She has no lab work. Today, her blood sugars seem to be reasonably controlled. She continued to have a Coumadin-induced coagulopathy with a prothrombin time of 15.2, INR of 5.4. ASSESSMENT: 1. Bilateral lower extremity cellulitis. 2. Coumadin-induced coagulopathy with INR of 5.4. 3. Chronic kidney disease. 4. Type 2 diabetes mellitus with diabetic peripheral neuropathy. 5. Hypertension. 6. Hyperlipidemia. 7. Coronary artery disease, status post myocardial infarction. 8. Chronic obstructive pulmonary disease. 9. Questionable morbid obesity with a body mass index of 42.3 kilograms/square meter. PLAN: To continue with IV antibiotic in the form of vancomycin as per pharmacy recommendation. We are holding her metformin for chronic kidney disease. Holding Coumadin for prolonged prothrombin time. We will continue with pain management. I will repeat all her lab works again tomorrow. ANGÉLICA DR: Charity TID: [id number]
[2021-04-30 23:44] VITALS: BP 94/54
[2021-05-01 04:28] VITALS: BP 112/63
[2021-05-01] MEDS: oxyCODONE/APAP 7.5/325 1 TAB TABLET PO PRN ×3 (04:35→20:33)
--- NOTE | 2021-05-01 06:17 | NUR ---
INTERVENTIONS AND CASE MAKING MACHINE OPERATOR WERE CHARTED BY SN MAYELA UNDER THE DIRECT SUPERVISION OF THIS RN.
[2021-05-01 07:54] LABS: ALBUMIN 3.4 g/dL (3.4-5.0); ALBUMIN/GLOBULIN RATIO 1.1 (1.0-1.7); CALCIUM 8.5 mg/dL (8.5-10.1); CREATININE 1.6 mg/dL (0.6-1.0); POTASSIUM 3.9 mmol/L (3.5-5.1); TOTAL BILIRUBIN 0.4 mg/dL (0.2-1.0); TOTAL PROTEIN 6.6 g/dL (6.4-8.2)
[2021-05-01] MEDS: PANTOPRAZOLE 40 MG TABLET. PO SCH (08:18)
[2021-05-01] MEDS: CARVEDILOL 12.5 MG TABLET PO SCH ×2 (08:20→16:47)
[2021-05-01] MEDS: INSULIN LISPRO 300 UNITS/3 ML VIAL. SQ SCH ×3 (08:22→17:27)
[2021-05-01 08:25] LABS: BASO % 1 % (0-3); EOS # 0.2 x10^3/uL (0.0-0.7); EOS % 5 % (0-3); HEMATOCRIT 35.9 % (36.0-47.0); HEMOGLOBIN 11.7 g/dL (12.0-15.5); LYMPH # 1.1 x10^3/uL (1.0-4.8); LYMPH % 28 % (24-48); MEAN CORPUSCULAR HEMOGLOBIN 31 pg (25-35); MEAN CORPUSCULAR HGB CONC 33 g/dL (31-37); MEAN CORPUSCULAR VOLUME 95 fL (79-100); MONO # 0.4 x10^3/uL (0.0-1.1); MONO % 11 % (0-9); NEUT # 2.1 x10^3uL (1.8-7.7); NEUT % 55 % (31-73); PLATELET COUNT 226 x10^3/uL (140-400); RED BLOOD COUNT 3.76 x10^6/uL (3.50-5.40); RED CELL DISTRIBUTION WIDTH 17.4 % (11.5-14.5); WHITE BLOOD COUNT 3.8 x10^3/uL (4.0-11.0)
[2021-05-01] MEDS ORDERED: TORSEMIDE 20 MG TABLET. PO SCH (09:00)
[2021-05-01] MEDS: ARIPiprazole 10 MG TABLET PO SCH (09:31)
[2021-05-01] MEDS: FENOFIBRATE NANOCRYSTALLIZED 145 MG TABLET PO SCH (09:31)
[2021-05-01] MEDS: buPROPion XL 300 MG TAB.ER.24H. PO SCH (09:31)
[2021-05-01] MEDS: LACTOBACILLUS RHAMNOSUS GG 1 CAPSULE. PO SCH ×2 (09:31→20:33)
[2021-05-01] MEDS: METHADONE 5 MG TABLET. PO PRN (09:32)
[2021-05-01] MEDS: ISOSORBIDE MONONITRATE ER 30 MG TAB.ER.24H PO SCH (09:33)
[2021-05-01] MEDS: OXYBUTYNIN CHLORIDE 5 MG TABLET PO SCH ×2 (09:33→20:33)
[2021-05-01] MEDS: CYCLOBENZAPRINE 10 MG TABLET. PO SCH ×3 (09:33→20:33)
[2021-05-01] MEDS: VENLAFAXINE XR 37.5 MG CAP.ER.24H. PO SCH (09:33)
[2021-05-01] MEDS ORDERED: NICOTINE 21MG PATCH. TD PRN (12:45)
[2021-05-01 19:47] VITALS: BP 87/55
[2021-05-01 19:51] LABS: VANC TR 15.4 mcg/mL (10.0-20.0)
--- NOTE | 2021-05-01 20:03 | PN ---
DATE: 05/01/2021 SUBJECTIVE: The patient is resting, slightly propped up in bed, in no apparent respiratory distress. She is awake, alert. On questioning her, she stated that she is feeling generally better. The swelling is somewhat better than yesterday, although she continued to have erythema. PHYSICAL EXAMINATION: GENERAL: When I examined her, she was pale, not jaundiced, cyanosed, no lymphadenopathy, no thyromegaly, no jugular venous distention. Bilateral lower limb edema. VITAL SIGNS: Her heart rate was 56, blood pressure is 112/63, temperature 97.4, respiratory rate was 18 and oxygen saturation was 97% on room air. HEAD, EYES, EARS, NOSE, AND THROAT: Normocephalic, atraumatic. NECK: Supple. HEART: Normal first and second heart sounds. No gallop or murmur. CHEST: Shows central trachea, equal bilateral expansion, air entry, vesicular breath sounds. No crepitation or rhonchi. ABDOMEN: Distended, soft, nontender. NEUROLOGIC: She was grossly intact. EXTREMITIES: Examination of both lower extremities show that she continued to have bilateral lower extremity edema as well as bilateral lower extremity erythema, more so on the right than left. She has few small open wounds there. Her intake was 800, no output was recorded. LABORATORY DATA: Her lab work this morning showed a white cell count of 3.8, hemoglobin 11.7, hematocrit 36, MCV 95 and platelet count 226,000. Serum sodium was 136, potassium 3.9, chloride 101, bicarbonate 26, anion gap of 9, BUN 23, creatinine 1.6. Estimated GFR was 33 mL per minute. Her glucose 107, calcium was 8.5. Her influenza A and B were negative. Coronavirus by PCR was negative. ASSESSMENT: 1. Bilateral lower extremity cellulitis. 2. Coumadin-induced coagulopathy. Her INR today is down to 3.7. 3. Acute on chronic kidney disease. Her creatinine came down from 1.8 to 1.6. 4. Type 2 diabetes mellitus with diabetic peripheral neuropathy, seems to be reasonably controlled. 5. Hypertension. 6. Hyperlipidemia. 7. Coronary artery disease, status post myocardial infarction. 8. Chronic obstructive pulmonary disease. 9. Questionable morbid obesity with a body mass index of 42.3 kilograms/square meter. PLAN: To continue with IV vancomycin, continue to hold her metformin due to elevation of her creatinine and continue to hold Coumadin as her INR is still high as supratherapeutic. Meanwhile, we will continue with insulin sliding scale. Continue with torsemide as well as spironolactone and all other medications. CHANDA DR: Charity TID: [id number]
[2021-05-01] MEDS: VANCOMYCIN 1.5 GM in IV NORMAL SALINE 500ML 500 ML IV SCH (20:32)
[2021-05-01] MEDS: ATORVASTATIN CALCIUM 10 MG TABLET. PO SCH (20:33)
[2021-05-01] MEDS: VANCOMYCIN PER PHARMACY MC PRN (20:40)
[2021-05-01 22:41] VITALS: BP 103/63
[2021-05-02] MEDS: METHADONE 5 MG TABLET. PO PRN (02:37)
[2021-05-02 05:06] VITALS: BP 99/62
[2021-05-02] MEDS: buPROPion XL 300 MG TAB.ER.24H. PO SCH (07:46)
[2021-05-02] MEDS: CARVEDILOL 12.5 MG TABLET PO SCH (07:47)
[2021-05-02] MEDS: ARIPiprazole 10 MG TABLET PO SCH (07:47)
[2021-05-02] MEDS: LACTOBACILLUS RHAMNOSUS GG 1 CAPSULE. PO SCH (07:47)
[2021-05-02] MEDS: FENOFIBRATE NANOCRYSTALLIZED 145 MG TABLET PO SCH (07:47)
[2021-05-02] MEDS: CYCLOBENZAPRINE 10 MG TABLET. PO SCH ×2 (07:48→13:43)
[2021-05-02] MEDS: PANTOPRAZOLE 40 MG TABLET. PO SCH (07:48)
[2021-05-02] MEDS: OXYBUTYNIN CHLORIDE 5 MG TABLET PO SCH (07:48)
[2021-05-02] MEDS: VENLAFAXINE XR 37.5 MG CAP.ER.24H. PO SCH (07:48)
[2021-05-02] MEDS: POTASSIUM CHLORIDE 10 MEQ TABLET.ER. PO SCH (07:48)
[2021-05-02] MEDS: ISOSORBIDE MONONITRATE ER 30 MG TAB.ER.24H PO SCH (07:49)
[2021-05-02] MEDS: SPIRONOLACTONE 25 MG TABLET PO SCH (07:49)
[2021-05-02] MEDS: INSULIN LISPRO 300 UNITS/3 ML VIAL. SQ SCH ×2 (07:50→11:53)
[2021-05-02] MEDS ORDERED: SEMAGLUTIDE SQ SCH (09:00)
[2021-05-02 12:23] VITALS: BP 123/75
[2021-05-02] MEDS: oxyCODONE/APAP 7.5/325 1 TAB TABLET PO PRN (12:55)
[2021-05-02 15:32] LABS: CALCIUM 8.4 mg/dL (8.5-10.1); CREATININE 1.7 mg/dL (0.6-1.0); GFR 30.8
[2021-05-02] MEDS ORDERED: WARFARIN 5 MG TABLET. PO SCH (16:00)
[2021-05-02] MEDS ORDERED: CEPH500T PO (16:14)
--- NOTE | 2021-05-02 16:30 | NUR ---
HOME MEDS RETURNED BACK TO THE PATIENT FROM PHARMACY
--- NOTE | 2021-05-02 16:37 | NUR ---
PATIENT IS DISCHARGED HOME, DISCHARGE INSTRUCTIONS REVIEWED, PRESCRIBED MEDS REVIEWED, PATIENT VERBALIZED UNDERSTANDING. PATIENT LEFT ROOM 107 VIA AMBULATION ACCOMP BY SELF. PATIENT IS TAKEN HOME BY FAMILY MEMBER VIA PERSONAL VEHICLE.
[2021-05-02] MEDS ORDERED: METHADONE 5 MG TABLET. PO SCH (21:00)
--- NOTE | 2021-05-02 21:32 | DS ---
HOSPITAL COURSE: The patient was admitted with bilateral lower extremity cellulitis. She does have also marked Coumadin-induced coagulopathy. Her INR on admission was 5.4. Does have also acute on chronic kidney injury. We did start her on IV vancomycin and held her Coumadin and she did actually very well. All the redness and warmth of her both lower extremities have largely subsided. The swelling has also largely subsided. Her PT/INR came down from 55.2 and 5.4 down to 25.7 and 2.5. Therefore, a decision was made to discharge her home to continue on oral Keflex 500 mg 3 times a day. I also tried to simplify her Coumadin and discharged her on Coumadin 4 mg once a day with a prescription for 1 mg strength for flexibility and to adjust the dose up and down. PHYSICAL EXAMINATION: GENERAL: When I examined her today, she looked somewhat pale, but not jaundiced or cyanosed, no lymphadenopathy, no thyromegaly, no jugular venous distention. No lower limb edema. VITAL SIGNS: Her heart rate was 60, blood pressure was 123/75, temperature was 97.7, respiratory rate 20 and oxygen saturation was 96% on room air. HEAD, EYES, EARS, NOSE, AND THROAT: Normocephalic, atraumatic. NECK: Supple. HEART: Showed normal first and second heart sounds. No gallop, rub or murmur. CHEST: Clear to auscultation. No crepitation or rhonchi. ABDOMEN: Distended, soft, nontender. NEUROLOGIC: She is grossly intact. LABORATORY DATA: This morning showed a white cell count of 3800, hemoglobin 12, hematocrit 36, MCV 95 and platelet count 226,000. Her chemistry showed a serum sodium 139, potassium 4, chloride 101, bicarbonate 29, anion gap of 9, BUN 28, creatinine 1.7. Estimated GFR was 30 mL per minute. Her glucose 159, calcium was 8.4. Her prothrombin time was 25.7, INR of 2.5. Her vancomycin trough level was 15.4. Her coronavirus PCR was negative. Influenza A and B were negative. DISCHARGE MEDICATIONS: She was discharged home to continue on Keflex 500 mg 3 times a day for 7 days, coumadin 4 mg once a day, aripiprazole 30 mg once a day, Wellbutrin 300 mg once a day, carvedilol 25 mg twice a day, cyclobenzaprine 10 mg 3 times a day, fenofibrate 145 mg once a day, isosorbide mononitrate 30 mg once a day, methadone 10 mg twice a day, ondansetron 4 mg every 6-8 hours, oxybutynin chloride 2 tablets daily. She is on oxycodone/APAP 7.5/325 one tablet 3 times a day as needed, Protonix 40 mg once a day, potassium chloride 10 mEq every other day, pravastatin 20 mg at bedtime, semaglutide for Ozempic 0.75 mg subcutaneously weekly, spironolactone 50 mg every other day, torsemide 100 mg every other day, venlafaxine for Effexor XR 37.5 mg daily. FINAL DISCHARGE DIAGNOSES: 1. Bilateral lower extremity cellulitis, resolved. 2. Coumadin-induced coagulopathy, resolved. Her INR is 2.5 this morning. 3. Acute on chronic kidney injury. Creatinine has stabilized around 1.7. 4. Type 2 diabetes mellitus with diabetic peripheral neuropathy, seems to be reasonably controlled. 5. Hypertension. 6. Hyperlipidemia. 7. Coronary artery disease status post myocardial infarction. 8. Chronic obstructive pulmonary disease. Unfortunately, the patient continues to smoke heavily. 9. Questionable obstructive sleep apnea with a body mass index 42.3 kilograms/square meter. The patient was advised to monitor her INR on weekly basis and report the result to her primary care physician to adjust her Coumadin. MULUGETA GARCIA: Charity TID: [id number]
== END 2021-05-02 16:35 | disposition home or self-care (01) | DRG 602 ==
LOC: ER 17:15 → 1 SOUTH 19:59
PROVIDERS: ADMIT Internal Medicine; ATTEND Internal Medicine
DX: L03.116 Cellulitis of left lower limb (principal); N17.0 Acute kidney failure with tubular necrosis; I13.0 Hypertensive heart and chronic kidney disease with heart failure and stage 1 through stage 4 chronic kidney disease, or unspecified chronic kidney disease; L03.115 Cellulitis of right lower limb; Z20.822 Contact with and (suspected) exposure to COVID-19; E11.42 Type 2 diabetes mellitus with diabetic polyneuropathy; N18.9 Chronic kidney disease, unspecified; I50.9 Heart failure, unspecified; J44.9 Chronic obstructive pulmonary disease, unspecified; E78.5 Hyperlipidemia, unspecified; F17.210 Nicotine dependence, cigarettes, uncomplicated; Z96.653 Presence of artificial knee joint, bilateral; E11.22 Type 2 diabetes mellitus with diabetic chronic kidney disease; R79.1 Abnormal coagulation profile; G47.33 Obstructive sleep apnea (adult) (pediatric); T45.515A Adverse effect of anticoagulants, initial encounter; I25.10 Atherosclerotic heart disease of native coronary artery without angina pectoris; F31.9 Bipolar disorder, unspecified; F41.9 Anxiety disorder, unspecified; Z79.899 Other long term (current) drug therapy; I25.2 Old myocardial infarction; Z88.8 Allergy status to other drugs, medicaments and biological substances; Y92.89 Other specified places as the place of occurrence of the external cause; Z80.1 Family history of malignant neoplasm of trachea, bronchus and lung; Z82.49 Family history of ischemic heart disease and other diseases of the circulatory system; Z90.49 Acquired absence of other specified parts of digestive tract; Z86.718 Personal history of other venous thrombosis and embolism
CPT/HCPCS: 36415; 71045; 80048; 80053; 80202; 82947; 83880; 84484; 85025; 85610; 87428; 93005; 96365; 99406; J1815; J3370; J7040; U0003; 97530; 99285-25

== ENCOUNTER 2021-05-10 12:36 | Emergency (ER) | payer MEDICARE ==
[~2021-05-10] VITALS: Ht 165.1 cm; Wt 124.0 kg
[~2021-05-10 12:36] MED LIST changes: +CARV25TA2 PO; +CYCL10TA19 PO; +ISOS30TA68 PO; +POTA-112 PO; +SEMA0.25 SQ; +SPIR50TA4 PO; +TORS100T3 PO; +VENL37.5 PO; +WARF-31 PO
[2021-05-10 12:46] VITALS: BP 114/60
--- NOTE | 2021-05-10 12:57 | PHYS DOC ---
Past History Past Medical History: Anxiety, Bipolar, CAD, CHF, Depression, Diabetes, DVT, Hypertension, Other Additional Past Medical Histor: FACTOR 5, cellulitis, chronic hip and feet pain Past Surgical History: Other Additional Past Surgical Histo: LOWER BACK Smoking: Cigarettes Alcohol Use: None Drug Use: None General Adult EDM: Chief Complaint: BACK PAIN - NO INJURY HPI: HPI: Patient is a 61-year-old female who presents to the emergency department today for bilateral flank pain and decreased urine output. Patient reports that she saw her primary care provider for these and had lab work and a urinalysis performed. She reports that she did not have a UTI but she was told that her "labs were out of whack". Patient reports that she was diagnosed with an acute kidney injury. She was referred to urology but cannot get in to see them. Patient is reporting nausea. She was given Zofran by her primary care provider and took a dose at 6 this morning. Patient denies vomiting, fevers, dysuria, frequency urgency, hematuria, abdominal pain. Review of Systems: Review of Systems: Constitutional: See HPI GI: See HPI : See HPI Musculoskeletal: See HPI Allergies: Allergies: Allergies Coded Allergies Type Severity Reaction Last Updated Verified fluoxetine Allergy Intermediate 04/24/21 Yes I S O L A T I O N *CONTACT* Allergy Unknown 04/24/21 Yes pregabalin Allergy Unknown 04/24/21 Yes Physical Exam: PE: Constitutional: Well developed, well nourished, no acute distress, non-toxic appearance. [] HENT: Normocephalic, atraumatic, bilateral external ears normal, oropharynx moist, no oral exudates, nose normal. [] Eyes: PERRL, EOMI, conjunctiva normal, no discharge. [] Neck: Normal range of motion, no stridor Cardiovascular:Heart rate regular rhythm, no murmur [] Lungs & Thorax: Bilateral breath sounds clear to auscultation [] Abdomen: Bowel sounds normal, soft, no tenderness, no masses, no pulsatile masses. [] Skin: Warm, dry, no erythema, no rash. [] Back: No tenderness, bilateral paraspinal lumbar tenderness, no cvat Extremities: No tenderness, no cyanosis, no clubbing, ROM intact, no edema. [] Neurologic: Alert and oriented X 3, normal motor function, normal sensory function, no focal deficits noted. [] Psychologic: Affect normal, judgement normal, mood normal. [] Current Patient Data: Labs: Laboratory Tests Test 05/10/21 13:40 White Blood Count 7.7 x10^3/uL Red Blood Count 4.29 x10^6/uL Hemoglobin 13.2 g/dL Hematocrit 39.6 % Mean Corpuscular Volume 92 fL Mean Corpuscular Hemoglobin 31 pg Mean Corpuscular Hemoglobin Concent 33 g/dL Red Cell Distribution Width 15.7 % Platelet Count 294 x10^3/uL Neutrophils (%) (Auto) 63 % Lymphocytes (%) (Auto) 22 % Monocytes (%) (Auto) 10 % Eosinophils (%) (Auto) 4 % Basophils (%) (Auto) 2 % Neutrophils # (Auto) 4.8 x10^3uL Lymphocytes # (Auto) 1.7 x10^3/uL Monocytes # (Auto) 0.7 x10^3/uL Eosinophils # (Auto) 0.3 x10^3/uL Basophils # (Auto) 0.2 x10^3/uL Urine Collection Type Unknown Urine Color Yellow Urine Clarity Clear Urine pH 5.5 Urine Specific [place] 1.020 Urine Protein Neg Urine Glucose (UA) Neg mg/dL Urine Ketones (Stick) Neg mg/dL Urine Blood Neg Urine Nitrite Neg Urine Bilirubin Neg Urine Urobilinogen Dipstick 0.2 mg/dL Urine Leukocyte Esterase Trace Urine RBC 0 /HPF Urine WBC 5-10 /HPF Urine Squamous Epithelial Cells Few /LPF Urine Bacteria Few /HPF Urine Mucus Slight /LPF Sodium Level 133 mmol/L Potassium Level 3.7 mmol/L Chloride Level 94 mmol/L Carbon Dioxide Level 29 mmol/L Anion Gap 10 Blood Urea Nitrogen 58 mg/dL Creatinine 2.4 mg/dL Estimated GFR (Cockcroft-Gault) 20.6 BUN/Creatinine Ratio 24 Glucose Level 156 mg/dL Calcium Level 9.1 mg/dL Total Bilirubin 0.3 mg/dL Aspartate Amino Transf (AST/SGOT) 26 U/L Alanine Aminotransferase (ALT/SGPT) 40 U/L Alkaline Phosphatase 62 U/L Total Protein 7.4 g/dL Albumin 3.8 g/dL Albumin/Globulin Ratio 1.1 Current Medications Medications (Trade) Dose Ordered Sig/Lisa Route PRN Reason Start Time Stop Time Status Last Admin Dose Admin Sodium Chloride 1,000 ml @ 1,000 mls/hr 1X ONCE IV 05/10/21 13:00 05/10/21 13:59 DC 05/10/21 13:00 EKG: EKG: [] Radiology/Procedures: Radiology/Procedures: [] Heart Score: C/O Chest Pain: N/A Risk Factors: Risk Factors: DM, Current or recent (<one month) smoker, HTN, HLP, family history of CAD, obesity. Risk Scores: Score 0 - 3: 2.5% MACE over next 6 weeks - Discharge Home Score 4 - 6: 20.3% MACE over next 6 weeks - Admit for Clinical Observation Score 7 - 10: 72.7% MACE over next 6 weeks - Early Invasive Strategies Course & Med Decision Making: Course & Med Decision Making Pertinent Labs and Imaging studies reviewed. (See chart for details) [] Patient presents to the emergency department for bilateral flank pain and decreased urine output. She reports that she was told she had an acute kidney injury. She has no history of kidney stones. Work-up in the ER consisted of blood work and urinalysis. Patient CBC is unremarkable and she does not have any leukocytosis. Hemoglobin is 58, creatinine 2.4 which is elevated from her previous lab findings on May 02 of 1.7. Patient sodium was 133 and she was given a liter of normal saline. Urinalysis does show a urinary tract infection. Patient does not have any intractable nausea or vomiting, no fevers. Discussed case with supervising physician. Patient will be treated with a dose of IV antibiotics in the emergency department and discharged home with an antibiotic. Patient reports that she tolerates Rocephin and other cephalosporins but just does not tolerate Keflex. Patient will be given referral information for nephrology. Patient's vital signs are stable. I discussed with patient all findings and diagnostic testing as well as the need to follow-up with PCP for further evaluation and treatment or return to the ER if any new or worsening symptoms. Strict return precautions were also discussed at length. Patient voiced understanding and agreement with the plan. Patient is hemodynamically stable at the time of disposition. Dragon Disclaimer: Dragon Disclaimer: This electronic medical record was generated, in whole or in part, using a voice recognition dictation system. Departure Departure: Impression: Primary Impression: Urinary tract infection Qualified Codes: N30.00 - Acute cystitis without hematuria Additional Impression: AMBER (acute kidney injury) Disposition: HOME / SELF CARE / HOMELESS Condition: GOOD Referrals: TY GARDNER (PCP) Patient Instructions: Urinary Tract Infection Additional Instructions: [facility], , [place] [phone] You are seen in the emergency department today for flank pain and decreased uri ne output. The it is possible that your decreased urine output is due to the new medication that you were placed on for urinary incontinence. You are noted to have a urinary tract infection will be treated with antibiotic. Please start and finish it completely. Increase your fluids. You will need to follow-up with your primary care provider tomorrow regarding your ER visit. You will need to follow-up with a principal technical writer regarding your acute kidney injury. You can follow-up with Dr. Alvarez, her phone number is above please call her as soon as you are discharged from this ER. Return to the emergency department if you develop worsening of your back pain, abdominal pain, intractable vomiting, high fevers refractory to treatment or any new or worsening concerns. Scripts Cefdinir (CEFDINIR) 300 Mg Capsule 1 CAP PO BID for uti for 10 Days, #20 CAP 0 Refills Prov: JERO JARA APRN 05/10/21 JERO JARA GRANT WRITER May 10, 2021 12:57
[2021-05-10] MEDS ORDERED: IV NORMAL SALINE 1,000ML 1,000 ML IV ONE (13:00)
[2021-05-10 13:57] LABS: BASO # 0.2 x10^3/uL (0.0-0.2); BASO % 2 % (0-3); EOS # 0.3 x10^3/uL (0.0-0.7); EOS % 4 % (0-3); HEMATOCRIT 39.6 % (36.0-47.0); HEMOGLOBIN 13.2 g/dL (12.0-15.5); LYMPH # 1.7 x10^3/uL (1.0-4.8); LYMPH % 22 % (24-48); MEAN CORPUSCULAR HEMOGLOBIN 31 pg (25-35); MEAN CORPUSCULAR HGB CONC 33 g/dL (31-37); MEAN CORPUSCULAR VOLUME 92 fL (79-100); MONO # 0.7 x10^3/uL (0.0-1.1); MONO % 10 % (0-9); NEUT # 4.8 x10^3uL (1.8-7.7); NEUT % 63 % (31-73); PLATELET COUNT 294 x10^3/uL (140-400); RED BLOOD COUNT 4.29 x10^6/uL (3.50-5.40); RED CELL DISTRIBUTION WIDTH 15.7 % (11.5-14.5); WHITE BLOOD COUNT 7.7 x10^3/uL (4.0-11.0)
[2021-05-10 14:07] LABS: CALCIUM 9.1 mg/dL (8.5-10.1); CREATININE 2.4 mg/dL (0.6-1.0); GFR 20.6; POTASSIUM 3.7 mmol/L (3.5-5.1)
[2021-05-10 14:10] LABS: ALBUMIN 3.8 g/dL (3.4-5.0); ALBUMIN/GLOBULIN RATIO 1.1 (1.0-1.7); TOTAL BILIRUBIN 0.3 mg/dL (0.2-1.0); TOTAL PROTEIN 7.4 g/dL (6.4-8.2)
[2021-05-10 14:28] LABS: CLARITY,URINE CLEAR; COLOR,URINE YELLOW
[2021-05-10 14:29] LABS: BACTERIA,URINE FEW /HPF (0-FEW); GLUCOSE,URINE NEG (NEG); NITRITE,URINE NEG (NEG); RBC,URINE 0 /HPF (0-2); SQUAMOUS EPITHELIAL CELL,UR FEW /LPF; UROBILINOGEN,URINE 0.2 mg/dL (0.2 mg/dL)
[2021-05-10] MEDS ORDERED: CEFD300C PO (14:46)
== END 2021-05-10 16:36 | disposition home or self-care (01) ==
LOC: ER 12:36
DX: N17.9 Acute kidney failure, unspecified (principal); N30.00 Acute cystitis without hematuria; F41.9 Anxiety disorder, unspecified; F31.9 Bipolar disorder, unspecified; I25.10 Atherosclerotic heart disease of native coronary artery without angina pectoris; I11.0 Hypertensive heart disease with heart failure; I50.9 Heart failure, unspecified; E11.9 Type 2 diabetes mellitus without complications; G89.29 Other chronic pain; F17.210 Nicotine dependence, cigarettes, uncomplicated; Z86.718 Personal history of other venous thrombosis and embolism; Z88.8 Allergy status to other drugs, medicaments and biological substances
CPT/HCPCS: 36415; 80053; 81001; 85025; 87077; 87086; 87186; 96360; 96361; 99283; J7030

== ENCOUNTER 2021-05-31 16:20 | Observation (INO) | payer MEDICARE ==
[~2021-05-31] VITALS: Ht 165.1 cm; Wt 115.9 kg
[~2021-05-31 16:20] MED LIST changes: +CEFD300C PO
[2021-05-31 17:09] LABS: BASO # 0.1 x10^3/uL (0.0-0.2); BASO % 1 % (0-3); EOS # 0.3 x10^3/uL (0.0-0.7); EOS % 4 % (0-3); HEMATOCRIT 40.6 % (36.0-47.0); HEMOGLOBIN 13.6 g/dL (12.0-15.5); LYMPH # 1.6 x10^3/uL (1.0-4.8); LYMPH % 23 % (24-48); MEAN CORPUSCULAR HEMOGLOBIN 31 pg (25-35); MEAN CORPUSCULAR HGB CONC 34 g/dL (31-37); MEAN CORPUSCULAR VOLUME 93 fL (79-100); MONO # 0.5 x10^3/uL (0.0-1.1); MONO % 8 % (0-9); NEUT # 4.5 x10^3uL (1.8-7.7); NEUT % 65 % (31-73); PLATELET COUNT 226 x10^3/uL (140-400); RED BLOOD COUNT 4.37 x10^6/uL (3.50-5.40); RED CELL DISTRIBUTION WIDTH 15.8 % (11.5-14.5)
--- NOTE | 2021-05-31 17:17 | PHYS DOC ---
Past History Past Medical History: Anxiety, Bipolar, CAD, CHF, Depression, Diabetes, DVT, Hypertension, Other Additional Past Medical Histor: FACTOR 5, cellulitis, chronic hip,back,feet pain,kidney injury Past Surgical History: Cholecystectomy, Knee Replacement, Other Additional Past Surgical Histo: fusion of lumbar,bilat knee replacement,bilat hip Smoking: Cigarettes Alcohol Use: None Drug Use: None General Adult EDM: Chief Complaint: SHORTNESS OF BREATH HPI: HPI: Patient is a 61-year-old female coming in for lower extremity swelling of pain. Patient states she is also had a 13 pound weight gain over the past 48 hours. Patient is also complained of shortness of breath. Denies any cough. He states she has a history of heart failure and is taking torsemide 100 mg twice daily and has not missed any doses. Review of Systems: Review of Systems: All other systems within normal limits except for as noted in the HPI Allergies: Allergies: Allergies Coded Allergies Type Severity Reaction Last Updated Verified fluoxetine Allergy Intermediate 04/24/21 Yes I S O L A T I O N *CONTACT* Allergy Unknown 04/24/21 Yes pregabalin Allergy Unknown 04/24/21 Yes cephalexin Adverse Reaction Unknown Nausea and Vomiting 05/10/21 Yes Physical Exam: PE: Constitutional: Well developed, well nourished, no acute distress, non-toxic appearance. [] HENT: Normocephalic, atraumatic, bilateral external ears normal, nose normal. [] Eyes: PERRLA, conjunctiva normal, no discharge. [] Neck: No rigidity, supple, no stridor. [] Cardiovascular: Regular rate and rhythm, brisk cap refill [] Lungs & Thorax: Non labored symmetric respirations, no tachypnea or respiratory distress [] Abdomen: Soft, nondistended. Skin: Warm, dry, no erythema, no rash. [] Back: Unremarkable Extremities: No deformities, range of motion grossly intact, bilateral 3+ pitting lower extremity edema [] Neurologic: Alert and oriented X 3, no focal deficits noted. [] Psychologic: Affect normal, judgement normal, mood normal. [] Current Patient Data: Labs: Laboratory Tests Test 05/31/21 16:50 White Blood Count 7.0 x10^3/uL (4.0-11.0) Red Blood Count 4.37 x10^6/uL (3.50-5.40) Hemoglobin 13.6 g/dL (12.0-15.5) Hematocrit 40.6 % (36.0-47.0) Mean Corpuscular Volume 93 fL (79-100) Mean Corpuscular Hemoglobin 31 pg (25-35) Mean Corpuscular Hemoglobin Concent 34 g/dL (31-37) Red Cell Distribution Width 15.8 % (11.5-14.5) H Platelet Count 226 x10^3/uL (140-400) Neutrophils (%) (Auto) 65 % (31-73) Lymphocytes (%) (Auto) 23 % (24-48) L Monocytes (%) (Auto) 8 % (0-9) Eosinophils (%) (Auto) 4 % (0-3) H Basophils (%) (Auto) 1 % (0-3) Neutrophils # (Auto) 4.5 x10^3uL (1.8-7.7) Lymphocytes # (Auto) 1.6 x10^3/uL (1.0-4.8) Monocytes # (Auto) 0.5 x10^3/uL (0.0-1.1) Eosinophils # (Auto) 0.3 x10^3/uL (0.0-0.7) Basophils # (Auto) 0.1 x10^3/uL (0.0-0.2) Vital Signs: Vital Signs Date Time Temp Pulse Resp B/P (MAP) Pulse Ox O2 Delivery O2 Flow Rate FiO2 05/31/21 16:29 97.7 74 16 143/71 (95) 99 Room Air EKG: EKG: [] Radiology/Procedures: Radiology/Procedures: [place] [id number] IMAGING REPORT Signed PATIENT: ORA HERNANDEZ EACCOUNT: [id number] : 1960 LOCATION: [facility] AGE: 61 SEX: F EXAM STATUS: DIS IN ORD. PHYSICIAN: MARIAM HEAD MD REASON: CHEST PAIN PROCEDURE: CHEST AP ONLY EXAMINATION: Chest radiograph. VIEWS: Single AP view of the chest COMPARISON: 04/29/2021 INDICATION:61 years, Female, congestive heart failure. FINDINGS: Stable cardiomediastinal silhouette. No focal consolidation. No pleural effusion or pneumothorax. No acute osseous process. IMPRESSION: No acute cardiopulmonary process. Electronically signed by: Olivia Smith DO (05/31/2021 5:42 PM) [facility] DICTATED AND SIGNED BY: OLIVIA SMITH DO DATE: 05/31/21 174 CC: TY GARDNER PAC; MARIAM HEAD MD ~ [] Heart Score: C/O Chest Pain: No Risk Factors: Risk Factors: DM, Current or recent (<one month) smoker, HTN, HLP, family history of CAD, obesity. Risk Scores: Score 0 - 3: 2.5% MACE over next 6 weeks - Discharge Home Score 4 - 6: 20.3% MACE over next 6 weeks - Admit for Clinical Observation Score 7 - 10: 72.7% MACE over next 6 weeks - Early Invasive Strategies Course & Med Decision Making: Course & Med Decision Making Pertinent Labs and Imaging studies reviewed. (See chart for details) [] Dragon Disclaimer: Dragon Disclaimer: This electronic medical record was generated, in whole or in part, using a voice recognition dictation system. Departure Departure: Impression: Primary Impression: Chronic diastolic CHF (congestive heart failure) Disposition: ADMITTED INPATIENT Admitting Physician: Mariam Head Condition: STABLE Referrals: TY GARDNER PAC (PCP) PRITI MAHARAJ MD May 31, 2021 17:17
[2021-05-31 17:20] LABS: CALCIUM 9.2 mg/dL (8.5-10.1); CREATININE 1.8 mg/dL (0.6-1.0); GFR 28.7
[2021-05-31 17:26] LABS: SALIC 3.4 mg/dL (2.8-20.0)
[2021-05-31 17:27] LABS: INFLUENZA A PATIENT NEGATIVE (NEGATIVE); INFLUENZA B PATIENT NEGATIVE (NEGATIVE)
[2021-05-31 17:33] LABS: ALBUMIN/GLOBULIN RATIO 1.3 (1.0-1.7); MAGNESIUM 2.1 mg/dL (1.8-2.4); PHOSPHORUS 3.6 mg/dL (2.6-4.7); TOTAL BILIRUBIN 0.5 mg/dL (0.2-1.0); TOTAL PROTEIN 7.1 g/dL (6.4-8.2)
--- NOTE | 2021-05-31 17:44 | RAD ---
EXAMINATION: Chest radiograph. VIEWS: Single AP view of the chest COMPARISON: 04/29/2021 INDICATION:61 years, Female, congestive heart failure. FINDINGS: Stable cardiomediastinal silhouette. No focal consolidation. No pleural effusion or pneumothorax. No acute osseous process. IMPRESSION: No acute cardiopulmonary process. Electronically signed by: Josh Smith DO (05/31/2021 5:42 PM) [facility]
[2021-05-31] MEDS ORDERED: ONDANSETRON PF 4 MG/2 ML VIAL. IVP PRN (18:00)
[2021-05-31] MEDS ORDERED: FUROSEMIDE 100 MG/10 ML VIAL IVP ONE (18:00)
[2021-05-31] MEDS ORDERED: NITROGLYCERIN SUBLINGUAL 0.4 MG BOTTLE OF 25. SL PRN (18:00)
[2021-05-31] MEDS ORDERED: MORPHINE SULFATE 4 MG/ML DISP.SYRIN. IVP PRN (18:00)
[2021-05-31] MEDS ORDERED: ACETAMINOPHEN 325 MG TABLET PO PRN (18:00)
[2021-05-31 18:45] LABS: BACTERIA,URINE 0 /HPF (0-FEW); CLARITY,URINE CLEAR; COLOR,URINE YELLOW; GLUCOSE,URINE NEG (NEG); NITRITE,URINE NEG (NEG); RBC,URINE 0 /HPF (0-2); SQUAMOUS EPITHELIAL CELL,UR FEW /LPF; UROBILINOGEN,URINE 0.2 mg/dL (0.2 mg/dL); WBC,URINE OCC /HPF (0-4)
[2021-05-31 21:45] VITALS: BP 119/73
[2021-05-31 23:00] VITALS: BP 144/78
[2021-06-01] MEDS ORDERED: WARF6TAB47 PO (00:08)
[2021-06-01 05:00] VITALS: BP 121/77
[2021-06-01 06:29] LABS: BASO % 1 % (0-3); EOS # 0.2 x10^3/uL (0.0-0.7); EOS % 3 % (0-3); HEMATOCRIT 38.6 % (36.0-47.0); HEMOGLOBIN 12.9 g/dL (12.0-15.5); LYMPH # 1.3 x10^3/uL (1.0-4.8); LYMPH % 22 % (24-48); MEAN CORPUSCULAR HEMOGLOBIN 31 pg (25-35); MEAN CORPUSCULAR HGB CONC 33 g/dL (31-37); MEAN CORPUSCULAR VOLUME 93 fL (79-100); MONO # 0.5 x10^3/uL (0.0-1.1); MONO % 9 % (0-9); NEUT # 3.8 x10^3uL (1.8-7.7); NEUT % 65 % (31-73); PLATELET COUNT 206 x10^3/uL (140-400); RED BLOOD COUNT 4.15 x10^6/uL (3.50-5.40); RED CELL DISTRIBUTION WIDTH 16.3 % (11.5-14.5); WHITE BLOOD COUNT 5.8 x10^3/uL (4.0-11.0)
[2021-06-01 07:04] LABS: ALBUMIN 3.5 g/dL (3.4-5.0); ALBUMIN/GLOBULIN RATIO 1.3 (1.0-1.7); CALCIUM 9.1 mg/dL (8.5-10.1); CREATININE 2.1 mg/dL (0.6-1.0); TOTAL BILIRUBIN 0.4 mg/dL (0.2-1.0); TOTAL PROTEIN 6.3 g/dL (6.4-8.2)
[2021-06-01] MEDS ORDERED: SOLI5TAB2 PO (08:39)
--- NOTE | 2021-06-01 09:19 | HP ---
DATE OF SERVICE: 06/01/2021 ADMIT DATE: 05/31/2021 ATTENDING PHYSICIAN: Dr. Disla. CHIEF COMPLAINT: Shortness of breath and leg swelling. HISTORY OF PRESENT ILLNESS: The patient is a 61-year-old female with multiple medical issues. She has very little insight. She has had a 13-pound weight gain. Her symptoms are related to dry mouth. She drank excess amount of fluid. She has no insight into fluid restriction. In the ED, the workup shows mild vascular congestion. She did not require supplemental oxygen; however, she had 4+ pitting edema. Weight was up to 13 pounds according to the patient. She was admitted for diuresis and management. PAST MEDICAL HISTORY: Consistent with atypical chest pain, weight gain, chronic congestive heart failure, bilateral cellulitis, frequent UTIs and generalized debilitation. She has chronic pain syndrome. CURRENT MEDICATIONS: As follows: She is on Abilify 10 mg daily, bupropion, Coreg, Flexeril, methadone 10 mg b.i.d., ondansetron, oxybutynin, oxycodone, Ozempic, pravastatin, VESIcare, Aldactone, torsemide, Coumadin and Effexor. SOCIAL HISTORY: She is a smoker. No alcohol use. ALLERGIES: CEPHALEXIN, FLUOXETINE AND PREGABALIN, EXACT REACTIONS UNCLEAR. FAMILY HISTORY: Noncontributory. REVIEW OF SYSTEMS: Significant for the weight gain. She has dry mouth. She also has pedal edema. Her dyspnea had resolved by the time I see her. All other systems reviewed and turned to be negative. PHYSICAL EXAMINATION: GENERAL: When I saw her, this is an obese female who is in no acute distress. VITAL SIGNS: Initial vital signs showed a blood pressure of 126/86 mmHg, oxygen saturation 93% on room air. She is afebrile. HEENT: Head is without trauma. Pupils are reactive. Sclerae nonicteric. Oropharynx is clear. NECK: Supple, no bruits. LUNGS: Good breath sounds. CARDIOVASCULAR: Showed regular heart tones. ABDOMEN: Obese, protuberant. No organomegaly. EXTREMITIES: Showed 2+ edema, improved since the ED. PERTINENT LABORATORY STUDIES: Her hemoglobin on admission was 13.6 g/dL, white count 7000. Her creatinine was 1.8 mg/dL, potassium 4.0 mEq. BNP was 374. ASSESSMENT: 1. A 61-year-old female with known congestive heart failure. 2. Weight gain due to dietary indiscretion. 3. Cholinergic side effects from Effexor, which caused her to drink excess fluids. 4. History of congestive heart failure. 5. Chronic kidney disease stage IV. I think her baseline creatinine is somewhere around 2.0 mg/dL. 6. Obesity. 7. underlying depression. 8. Generalized debilitation. PLAN: 1. Admit to observation status. 2. Diuresis continued with Demadex. 3. Fluid restriction. Report daily weights. 4. I took the liberty of stopping her Effexor. 5. Serial chemistries. LEYDI/BECK DR: Everett TID: [id number] CC: TY GARDNER
--- NOTE | 2021-06-01 13:37 | RAD ---
EXAMINATION: Chest radiograph. VIEWS: Single AP view of the chest COMPARISON: 04/29/2021 INDICATION:61 years, Female, congestive heart failure. FINDINGS: Stable cardiomediastinal silhouette. No focal consolidation. No pleural effusion or pneumothorax. No acute osseous process. IMPRESSION: No acute cardiopulmonary process. Electronically signed by: Josh Smith DO (05/31/2021 5:42 PM) [facility]
--- NOTE | 2021-06-01 19:12 | DS ---
DATE OF DISCHARGE: 06/01/2021 ATTENDING PHYSICIAN: Dr. Disla. FINAL DISCHARGE DIAGNOSES: 1. Volume overload and pedal edema. 2. Dietary indiscretion with excess volume intake. 3. Cholinergic side effects of medications resulting in dry mouth and excess water ingestion. 4. History of cardiomyopathy, compensated. 5. Chronic kidney disease stage IV, baseline creatinine 2.0 mg/dL. 6. Generalized debilitation. 7. Obesity. 8. Hyperlipidemia. 9. Chronic anticoagulation. HISTORY AND PHYSICAL: The patient, age 61, is well known to us from previous admissions. She is admitted with pedal edema, 13-pound weight gain and absolutely no insight into how to manage her illness unfortunately. She continues to smoke. She had some dyspnea, but the chest x-ray on admission was clear. She was admitted for pedal edema. PHYSICAL EXAMINATION: Please see the dictated note. PERTINENT LABORATORY AND X-RAY STUDIES: Admission creatinine was 1.8 mg/dL. The electrolytes within normal range. Followup creatinine is 2.1 mg percent with diuresis and fluid restriction. This will be followed up as an outpatient. CBC and white count was normal. Chest x-ray as noted. COURSE IN HOSPITAL: The patient was admitted. She had good diuresis. We administered fluid restriction along with daily weights and serial chemistries. By the next hospital day, her ankle swelling was down. Lungs were clear she did not require supplemental oxygen. She wanted to go home. I felt this is reasonable. Whether or not she will quit smoking remains to be seen despite admonition. I think she is craving for nicotine. In any event, I sent her home with no changes on her meds except for stopping her Flexeril, oxybutynin and her Effexor. For now, she should continue her Abilify, BuSpar, Coreg, Imdur, methadone b.i.d., ondansetron, Protonix, potassium, pravastatin, Ozempic, torsemide and Coumadin dose is unchanged. Her INR is actually subtherapeutic and this will be followed up as an outpatient. The patient was then discharged from our hospital in stable condition with explicit drug and followup care, no new meds and simplification of her scheduled meds with those meds I dictated to be discontinued. She will follow up with Mr. Sen hopefully in 1 week's time and recheck chemistries. She was discharged then from our hospital in stable condition with explicit drug and followup care. CATARINO DR: Everett TID: [id number] CC: TY SEN
--- NOTE | 2021-06-01 19:15 | EKG ---
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
== END 2021-06-01 09:50 | disposition home or self-care (01) ==
LOC: ER 16:20 → ER HOLD 17:54 → INTOOBSV 17:54 → 1 SOUTH 21:38
PROVIDERS: ADMIT Internal Medicine; ATTEND Internal Medicine
DX: E87.70 Fluid overload, unspecified (principal); Z20.822 Contact with and (suspected) exposure to COVID-19; I13.0 Hypertensive heart and chronic kidney disease with heart failure and stage 1 through stage 4 chronic kidney disease, or unspecified chronic kidney disease; I50.32 Chronic diastolic (congestive) heart failure; N18.4 Chronic kidney disease, stage 4 (severe); E11.22 Type 2 diabetes mellitus with diabetic chronic kidney disease; R63.5 Abnormal weight gain; I25.10 Atherosclerotic heart disease of native coronary artery without angina pectoris; I42.9 Cardiomyopathy, unspecified; E78.5 Hyperlipidemia, unspecified; F31.9 Bipolar disorder, unspecified; G89.4 Chronic pain syndrome; R53.81 Other malaise; F17.210 Nicotine dependence, cigarettes, uncomplicated; Z79.01 Long term (current) use of anticoagulants; Z68.41 Body mass index [BMI] 40.0-44.9, adult; Z87.440 Personal history of urinary (tract) infections; Z96.653 Presence of artificial knee joint, bilateral; Z79.899 Other long term (current) drug therapy; Z98.890 Other specified postprocedural states; Z96.643 Presence of artificial hip joint, bilateral; Z90.49 Acquired absence of other specified parts of digestive tract
CPT/HCPCS: 36415; 71045; 80053; 80329; 81001; 83735; 83880; 84100; 84484; 85025; 85610; 87428; 93005; 96374; 99285; G0378; U0003; G0379; G0480

== ENCOUNTER 2021-06-07 20:33 | Emergency (ER) | payer MEDICARE ==
[~2021-06-07] VITALS: Ht 165.1 cm; Wt 111.0 kg
[~2021-06-07 20:33] MED LIST changes: +SOLI5TAB2 PO; +WARF6TAB47 PO
--- NOTE | 2021-06-07 21:19 | PHYS DOC ---
Past History Past Medical History: Anxiety, Bipolar, CAD, CHF, Depression, Diabetes, DVT, Hypertension, Other Additional Past Medical Histor: FACTOR 5, cellulitis, chronic hip,back,feet pain,kidney injury (KARELY ASCENCIO APRN) Past Surgical History: Cholecystectomy, Knee Replacement, Other Additional Past Surgical Histo: fusion of lumbar,bilat knee replacement,bilat hip (KARELY ASCENCIO APRN) Smoking: Cigarettes Alcohol Use: None Drug Use: None (KARELY ASCENCIO APRN) General Adult EDM: Chief Complaint: HYPERGLYCEMIA HPI: HPI: Patient is a 61-year-old female presents with shortness of breath, dizziness, elevated blood sugar. Patient states his blood sugar at home was 360s. Patient is not insulin-dependent. Currently takes metformin for type 2 diabetes . denies chest pain. Denies recent illness. Patient was fully vaccinated for COVID-19. Patient has a history of diabetes, hyperlipidemia, hypertension, factor x, [place]. (KARELY ASCENCIO APRN) Review of Systems: Review of Systems: ROS At least 10 ROS systems have been reviewed and are negative except as documented in the HPI. General: Negative except as outlined in HPI above. Skin: Negative except as outlined in HPI above. HEENT: Negative except as outlined in HPI above. Neck: Negative except as outlined in HPI above. Respiratory: Negative except as outlined in HPI above.. Cardiovascular: Negative except as outlined in HPI above. Abdomen: Negative except as outlined in HPI above. : Negative except as outlined in HPI above. Back/MSK: Negative except as outlined in HPI above. Neuro: Negative except as outlined in HPI above. Psych: Negative except as outlined in HPI above. (KARELY ASCENCIO SALON SALES CONSULTANT) Allergies: Allergies: Allergies Coded Allergies Type Severity Reaction Last Updated Verified fluoxetine Allergy Intermediate 04/24/21 Yes I S O L A T I O N *CONTACT* Allergy Unknown 04/24/21 Yes pregabalin Allergy Unknown 04/24/21 Yes cephalexin Adverse Reaction Unknown Nausea and Vomiting 05/10/21 Yes (KARELY ASCENCIO APRN) Physical Exam: PE: Constitutional: Well developed, well nourished, no acute distress, non-toxic appearance. [] HENT: Normocephalic, atraumatic, bilateral external ears normal Eyes: PERRLA, EOMI, conjunctiva normal, no discharge. [] Neck: Normal range of motion, no tenderness, supple, no stridor. [] Cardiovascular:Heart rate regular rhythm, no murmur [] Lungs & Thorax: Bilateral breath sounds clear to auscultation Abdomen: Bowel sounds normal, soft, no tenderness on palpation Skin: Warm, dry, no erythema, no rash. [] Back: No tenderness, no CVA tenderness. [] Extremities: No tenderness, no cyanosis, no clubbing, ROM intact, no edema. [] Neurologic: Alert and oriented X 3, normal motor function, normal sensory function, no focal deficits noted. [] Psychologic: Affect normal, judgement normal, mood normal. [] (KARELY ASCENCIO APRN) Current Patient Data: Labs: Laboratory Tests Test 06/07/21 20:54 Glucose (Fingerstick) 279 mg/dL (70-99) H (KARELY ASCENCIO APRN) EKG: EKG: [] (KARELY ASCENCIO APRN) Radiology/Procedures: Radiology/Procedures: [] (KARELY ASCENCIO APRN) Heart Score: C/O Chest Pain: No Risk Factors: Risk Factors: DM, Current or recent (<one month) smoker, HTN, HLP, family history of CAD, obesity. Risk Scores: Score 0 - 3: 2.5% MACE over next 6 weeks - Discharge Home Score 4 - 6: 20.3% MACE over next 6 weeks - Admit for Clinical Observation Score 7 - 10: 72.7% MACE over next 6 weeks - Early Invasive Strategies (KARELY ASCENCIO APRN) Course & Med Decision Making: Course & Med Decision Making Pertinent Labs and Imaging studies reviewed. (See chart for details) [] 61-year-old female presents with shortness of breath, dizziness, elevated blood sugar. Patient reports that symptoms started this morning. Last blood sugar at home was in the mid 300s. Patient is currently taking metformin for type 2 diabetes and is not insulin-dependent. Patient denies chest pain. Patient is currently on Coumadin for factor x. Patient's had a previous IN. Work-up in ER consisted of CBC, CMP, PT, PTT, troponin, D-dimer, urinalysis. Transfer patient care to Dr. Ramirez at [phone] (KARELY ASCENCIO APRN) Course & Med Decision Making Did not see or evaluate patient. Did not discuss patient with ELECTROENCEPHALOGRAPH TECHNICIAN. Generally agree with ELECTROENCEPHALOGRAPH TECHNICIAN's work-up and disposition per note (MOOK RAMIREZ MD) Dragon Disclaimer: Dragon Disclaimer: This electronic medical record was generated, in whole or in part, using a voice recognition dictation system. (KARELY ASCENCIO APRN) Departure Departure: Referrals: TY GARDNER (PCP) KARELY ASCENCIO APRN June 07, 2021 21:19 MOOK RAMIREZ MD June 07, 2021 22:09
--- NOTE | 2021-06-07 21:59 | RAD ---
Exam: Chest one view INDICATION: Shortness of breath, pain TECHNIQUE: Frontal view of the chest Comparisons: 04/29/2021 FINDINGS: The cardiomediastinal silhouette and pulmonary vessels are within normal limits. The lung and pleural spaces are clear. IMPRESSION: No acute cardiopulmonary process. Electronically signed by: Barney Shea MD (06/07/2021 9:57 PM) [facility]
[2021-06-07 22:02] LABS: BASO # 0.1 x10^3/uL (0.0-0.2); BASO % 1 % (0-3); EOS # 0.1 x10^3/uL (0.0-0.7); EOS % 2 % (0-3); HEMATOCRIT 36.5 % (36.0-47.0); HEMOGLOBIN 12.2 g/dL (12.0-15.5); LYMPH # 1.3 x10^3/uL (1.0-4.8); LYMPH % 22 % (24-48); MEAN CORPUSCULAR HEMOGLOBIN 31 pg (25-35); MEAN CORPUSCULAR HGB CONC 33 g/dL (31-37); MEAN CORPUSCULAR VOLUME 92 fL (79-100); MONO # 0.7 x10^3/uL (0.0-1.1); MONO % 12 % (0-9); NEUT # 3.9 x10^3uL (1.8-7.7); NEUT % 64 % (31-73); PLATELET COUNT 203 x10^3/uL (140-400); RED BLOOD COUNT 3.97 x10^6/uL (3.50-5.40); RED CELL DISTRIBUTION WIDTH 15.7 % (11.5-14.5); WHITE BLOOD COUNT 6.2 x10^3/uL (4.0-11.0)
[2021-06-07 22:20] LABS: ALBUMIN 3.3 g/dL (3.4-5.0); CALCIUM 8.9 mg/dL (8.5-10.1); CREATININE 2.7 mg/dL (0.6-1.0); MAGNESIUM 1.9 mg/dL (1.8-2.4); POTASSIUM 3.3 mmol/L (3.5-5.1); TOTAL BILIRUBIN 0.4 mg/dL (0.2-1.0); TOTAL PROTEIN 6.7 g/dL (6.4-8.2)
[2021-06-07 22:41] LABS: CLARITY,URINE CLEAR; COLOR,URINE YELLOW; GLUCOSE,URINE NEG (NEG)
[2021-06-07 22:42] LABS: BACTERIA,URINE FEW /HPF (0-FEW); NITRITE,URINE NEG (NEG); RBC,URINE OCC /HPF (0-2); SQUAMOUS EPITHELIAL CELL,UR FEW /LPF; UROBILINOGEN,URINE 0.2 mg/dL (0.2 mg/dL)
[2021-06-07] MEDS: IV RINGERS SOLUTION,LACTATED 1,000 ML IV ONE (23:53)
[2021-06-08 00:53] VITALS: BP 120/64
--- NOTE | 2021-06-08 01:26 | EKG ---
[address] [address] Test Date: 2021-06-07 Test Time: 22:10:53 Pat Name: ORA HERNANDEZ Department: Room: Gender: F Hunting [employer]: : 1960 Requested By: KARELY ASCENCIO Order Number: [id number] Reading MD: Measurements Intervals [place] Rate: 70 P: 59 IL: 178 QRS: 72 QRSD: 106 T: 83 QT: 434 QTc: 472 Interpretive Statements SINUS RHYTHM NO SPECIFIC ECG ABNORMALITIES RI6.02 No previous ECG available for comparison
== END 2021-06-08 00:55 | disposition home or self-care (01) ==
LOC: ER 20:33
DX: E11.65 Type 2 diabetes mellitus with hyperglycemia (principal); R42 Dizziness and giddiness; R06.02 Shortness of breath; F31.9 Bipolar disorder, unspecified; F41.9 Anxiety disorder, unspecified; I25.10 Atherosclerotic heart disease of native coronary artery without angina pectoris; I11.0 Hypertensive heart disease with heart failure; I50.9 Heart failure, unspecified; F17.210 Nicotine dependence, cigarettes, uncomplicated; Z86.718 Personal history of other venous thrombosis and embolism; Z88.8 Allergy status to other drugs, medicaments and biological substances; Z88.1 Allergy status to other antibiotic agents
CPT/HCPCS: 36415; 71045; 80053; 81001; 82947; 83735; 84484; 85025; 85379; 85610; 85730; 87077; 87086; 87186; 93005; 96360; 99285; J7120